=== PATIENT | female | born 1950 | race African-American/Black ===

== ENCOUNTER 2016-08-05 15:35 | Emergency (ER) | payer MEDICARE, OTHER ==
[2016-08-05] MEDS ORDERED: ASPIRIN 81 MG TABLET, CHEWABLE PO ONE (16:04)
--- NOTE | 2016-08-05 16:04 | ER Document Report ---
ED Medical Screen (RME) - General Stated Complaint: CHEST PAIN Time seen by provider: 16:01 Mode of Arrival: Wheelchair Information source: Patient Notes: 66-year-old female presents to ED for for pain in the epigastric area running around to the back on both sides. She had some spaghetti but are not half ago but she says the pain started this morning. She has a history of blood pressure cholesterol and diabetes. She also still has her gallbladder. States she has some dizziness. She states it feels different than her reflux. I have greeted and performed a rapid initial assessment of this patient. A comprehensive ED assessment and evaluation of the patient, analysis of test results and completion of medical decision making process will be conducted by an additional ED providers. TRAVEL OUTSIDE OF THE [place] IN LAST 30 DAYS: No - Related Data Allergies/Adverse Reactions: atorvastatin calcium [From Lipitor] Adverse Reaction (Verified 08/05/16 16:01) Past Medical History - Past Medical History Cardiac Medical History: Reports: Hx Coronary Artery Disease - HIGH CHOLESTEROL , Hx Hypercholesterolemia, Hx Hypertension Denies: Hx Heart Attack Pulmonary Medical History: Reports: Hx Asthma, Hx Pneumonia Denies: Hx Bronchitis, Hx COPD Neurological Medical History: Reports: Hx Cerebrovascular Accident - 1999 LEFT SIDED WEAKNESS. Denies: Hx Seizures Endocrine Medical History: Reports: Hx Diabetes Mellitus Type 2 GI Medical History: Reports: Hx Gastroesophageal Reflux Disease Musculoskeltal Medical History: Reports Hx Arthritis Psychiatric Medical History: Reports: Hx Anxiety, Hx Depression Past Surgical History: Reports: Hx Hysterectomy, Hx Orthopedic Surgery - R wrist. Denies: Hx Pacemaker - Immunizations Hx Diphtheria, Pertussis, Tetanus Vaccination: No Physical Exam - Vital signs Vitals: Temp Pulse Resp BP Pulse Ox 98.3 F 79 24 H 173/60 H 99 08/05/16 15:51 08/05/16 15:51 08/05/16 15:51 08/05/16 15:51 08/05/16 15:51 Course - Vital Signs Vital signs: Temp Pulse Resp BP Pulse Ox 98.3 F 79 24 H 173/60 H 99 08/05/16 15:51 08/05/16 15:51 08/05/16 15:51 08/05/16 15:51 08/05/16 15:51
[2016-08-05] MEDS ORDERED: ONDANSETRON HCL INJ/PF 4 MG/2 ML SDV IV ONE (16:06)
[2016-08-05] MEDS ORDERED: FAMOTIDINE 20 MG TABLET PO ONE (16:06)
[2016-08-05 16:57] LABS: ABSOLUTE BASOPHILS # (AUTO) 0.1 10^3/uL (0.0-0.2); ABSOLUTE EOSINOPHILS # (AUTO) 0.2 10^3/uL (0.0-0.6); ABSOLUTE LYMPHOCYTES (AUTO) 4.9 10^3/uL (0.5-4.7); ABSOLUTE NEUT (AUTO) 5.4 10^3/uL (1.7-8.2); BASOPHILS % (AUTO) 0.4 % (0-2); EOSINOPHILS % (AUTO) 1.8 % (0-6); HEMATOCRIT 42.4 % (36.0-47.0); HEMOGLOBIN 13.5 g/dL (12.0-15.5); HGB HCT DIFFERENCE -1.9; LYMPHOCYTES % (AUTO) 42.5 % (13-45); MEAN CORPUSCULAR HEMOGLOBIN 23.8 pg (27.0-33.4); MEAN CORPUSCULAR HGB CONC 31.8 g/dL (32.0-36.0); MEAN CORPUSCULAR VOLUME 75 fl (80-97); MONOCYTES % (AUTO) 8.3 % (3-13); RED BLOOD COUNT 5.66 10^6/uL (3.72-5.28); RED CELL DISTRIBUTION WIDTH 15.8 % (11.5-14.0); WHITE BLOOD COUNT 11.5 10^3/uL (4.0-10.5)
[2016-08-05 17:17] LABS: ALANINE AMINOTRANSFERASE 34 U/L (9-52); ALBUMIN 4.9 g/dL (3.5-5.0); ALKALINE PHOSPHATASE 100 U/L (38-126); ANION GAP 13 (5-19); ASPARTATE AMINO TRANSFERASE 28 U/L (14-36); BILIRUBIN,TOTAL 0.9 mg/dL (0.2-1.3); BLOOD UREA NITROGEN 12 mg/dL (7-20); CALCIUM 9.9 mg/dL (8.4-10.2); CARBON DIOXIDE 28 mmol/L (22-30); CHLORIDE 104 mmol/L (98-107); CREATINE KINASE 79 U/L (30-135); CREATININE RESULT 0.62 mg/dL (0.52-1.25); GLUCOSE 178 mg/dL (75-110); MAGNESIUM 1.8 mg/dL (1.6-2.3); POTASSIUM 4.1 mmol/L (3.6-5.0); SODIUM 145.2 mmol/L (137-145); TOTAL PROTEIN 8.7 g/dL (6.3-8.2)
[2016-08-05 17:34] LABS: CREATINE KINASE MB 0.72 ng/mL (<4.55)
[2016-08-05 17:35] LABS: TROPONIN I < 0.012 ng/mL
--- NOTE | 2016-08-05 17:42 | EKG REPORT ---
SEVERITY:- ABNORMAL ECG - SINUS RHYTHM PROBABLE LEFT ATRIAL ABNORMALITY PROBABLE LEFT VENTRICULAR HYPERTROPHY : Confirmed by: Vicki Vu MD 05-Aug-2016 17:41:58
--- NOTE | 2016-08-05 18:53 | ER Document Report ---
ED General - General Chief Complaint: Chest Pain > 30 Stated Complaint: CHEST PAIN Mode of Arrival: Wheelchair Information source: Patient Notes: 66-year-old female presents with complaints of intermittent flank pain over the past few months. Patient notes pain has worsened today. Denies any fevers or chills nausea vomiting or diarrhea patient initial concern noted pain under the ribs and was evaluated for chest pain however pain is specific to the flanks TRAVEL OUTSIDE OF THE [place] IN LAST 30 DAYS: No - HPI Onset: Other Onset/Duration: Intermittent Quality of pain: Sharp Severity: Mild Pain Level: 1 Associated symptoms: Other Exacerbated by: Denies Relieved by: Denies Similar symptoms previously: Yes Recently seen / treated by doctor: No - Related Data Allergies/Adverse Reactions: atorvastatin calcium [From Lipitor] Adverse Reaction (Verified 08/05/16 16:01) Past Medical History - General Information source: Patient - Social History Smoking Status: Former Smoker Cigarette use (# per day): No Chew tobacco use (# tins/day): No Smoking Education Provided: No Frequency of alcohol use: None Drug Abuse: None Family History: Reviewed & Not Pertinent Patient has suicidal ideation: No Patient has homicidal ideation: No - Past Medical History Cardiac Medical History: Reports: Hx Coronary Artery Disease - HIGH CHOLESTEROL , Hx Hypercholesterolemia, Hx Hypertension Denies: Hx Heart Attack Pulmonary Medical History: Reports: Hx Asthma, Hx Pneumonia Denies: Hx Bronchitis, Hx COPD Neurological Medical History: Reports: Hx Cerebrovascular Accident - 2000 LEFT SIDED WEAKNESS. Denies: Hx Seizures Endocrine Medical History: Reports: Hx Diabetes Mellitus Type 2 Renal/ Medical History: Denies: Hx Peritoneal Dialysis GI Medical History: Reports: Hx Gastroesophageal Reflux Disease Musculoskeltal Medical History: Reports Hx Arthritis Psychiatric Medical History: Reports: Hx Anxiety, Hx Depression Past Surgical History: Reports: Hx Hysterectomy, Hx Orthopedic Surgery - R wrist. Denies: Hx Pacemaker - Immunizations Hx Diphtheria, Pertussis, Tetanus Vaccination: No Hx Pneumococcal Vaccination: 03/10/10 Review of Systems - Review of Systems Notes: REVIEW OF SYSTEMS: CONSTITUTIONAL : Denies fever, chills, or sweats. Denies recent illness. EENT: Denies eye, ear, throat, or mouth pain or symptoms. Denies nasal or sinus congestion or discharge. Denies throat, tongue, or mouth swelling or difficulty swallowing. CARDIOVASCULAR: Denies chest pain. Denies palpitations or racing or irregular heart beat. Denies ankle edema. RESPIRATORY: Denies cough, cold, or chest congestion. Denies shortness of breath, difficulty breathing, or wheezing. GASTROINTESTINAL: Admits to bilateral flank pain abdominal pain GENITOURINARY: Denies difficulty urinating, painful urination, burning, frequency, blood in urine, or discharge. FEMALE GENITOURINARY: Denies vaginal bleeding, heavy or abnormal periods, irregular periods. Denies vaginal discharge or odor. MUSCULOSKELETAL: Denies back or neck pain or stiffness. Denies joint pain or swelling. SKIN: Denies rash, lesions or sores. HEMATOLOGIC : Denies easy bruising or bleeding. LYMPHATIC: Denies swollen, enlarged glands. NEUROLOGICAL: Denies confusion or altered mental status. Denies passing out or loss of consciousness. Denies dizziness or lightheadedness. Denies headache. Denies weakness or paralysis or loss of use of either side. Denies problems with gait or speech. Denies sensory loss, numbness, or tingling. Denies seizures. PSYCHIATRIC: Denies anxiety or stress. Denies depression, suicidal ideation, or homicidal ideation. ALL OTHER SYSTEMS REVIEWED AND NEGATIVE. Dictation was performed using [employer] voice recognition software PHYSICAL EXAMINATION: GENERAL: Well-appearing, well-nourished and in no acute distress. HEAD: Atraumatic, normocephalic. EYES: Pupils equal round and reactive to light, extraocular movements intact, conjunctiva are normal. ENT: Nares patent, oropharynx clear without exudates. Moist mucous membranes. NECK: Normal range of motion, supple without lymphadenopathy LUNGS: Breath sounds clear to auscultation bilaterally and equal. No wheezes rales or rhonchi. HEART: Regular rate and rhythm without murmurs ABDOMEN: Soft, nontender, nondistended abdomen. No guarding, no rebound. No masses appreciated. Bilateral CVA tenderness Female : deferred Musculoskeletal: Normal range of motion, no pitting or edema. No cyanosis. NEUROLOGICAL: Cranial nerves grossly intact. Normal speech, normal gait. Normal sensory, motor exams PSYCH: Normal mood, normal affect. SKIN: Warm, Dry, normal turgor, no rashes or lesions noted. Physical Exam - Vital signs Vitals: Temp Pulse Resp BP Pulse Ox 98.3 F 79 24 H 173/60 H 99 08/05/16 15:51 08/05/16 15:51 08/05/16 15:51 08/05/16 15:51 08/05/16 15:51 Course - Re-evaluation Re-evalutation: 08/05/16 18:38 Physical examination lab work note no obvious abnormalities. CT does note nonobstructing stone which I believe is the patient's intermittent concern when she goes past the stones. She is otherwise stable for discharge and has no cardiac concerns After performing a Medical Screening Examination, I estimate there is LOW risk for ACUTE APPENDICITIS, BOWEL OBSTRUCTION, ACUTE CHOLECYSTITIS, PERFORATED DIVERTICULITIS, INCARCERATED HERNIA, PANCREATITIS, PELVIC INFLAMMATORY DISEASE, PERFORATED ULCER, ECTOPIC , or TUBO-OVARIAN ABSCESS, thus I consider the discharge disposition reasonable. Also, there is no evidence or peritonitis , sepsis, or toxicity. The patient and I have discussed the diagnosis and risks , and we agree with discharging home with close follow-up with the understanding that symptoms and presentations can change. We also discussed returning to the Emergency Department immediately if new or worsening symptoms occur. We have discussed the symptoms which are most concerning (e.g., bloody stool, fever, changing or worsening pain, vomiting) that necessitate immediate return. 08/05/16 18:55 - Vital Signs Vital signs: Temp Pulse Resp BP Pulse Ox 98.3 F 79 19 177/70 H 99 08/05/16 15:51 08/05/16 15:51 08/05/16 17:01 08/05/16 17:00 08/05/16 17:19 - Laboratory Result Diagrams: 08/05/16 16:30 08/05/16 16:30 Laboratory results interpreted by me: 08/05/16 08/05/16 16:30 16:30 WBC 11.5 H RBC 5.66 H MCV 75 L MCH 23.8 L MCHC 31.8 L RDW 15.8 H Absolute Lymphocytes 4.9 H Sodium 145.2 H Glucose 178 H Total Protein 8.7 H - Diagnostic Test Radiology reviewed: Image reviewed, Reports reviewed Discharge - Discharge Clinical Impression: nonobstructing kidney stone Abdominal pain Qualifiers: Abdominal location: unspecified location Qualified Code(s): R10.9 - Unspecified abdominal pain Condition: Stable Disposition: HOME, SELF-CARE Instructions: Abdominal Pain ([facility]) Additional Instructions: Follow up with your physician tomorrow for further care or return to the ED IMMEDIATELY if symptoms worsen or new concerns occur Prescriptions: Hydrocodone/Acetaminophen [[place] 5-325 mg Tablet] 1 tab PO Q6 #14 tablet Tamsulosin HCl [Flomax 0.4 mg Cap.sr] 0.4 mg PO DAILY #7 cap.sr.24h
[2016-08-05] MEDS ORDERED: HYDROCODONE/ACETAMINOPHEN 5-325 MG 6 TAB/DSPK PO PRN (19:01)
[2016-08-05 19:15] VITALS: BP 160/70
== END 2016-08-05 19:13 | disposition home or self-care (01) ==
LOC: ER 15:35
DX: N20.0 Calculus of kidney (principal); R10.9 Unspecified abdominal pain; R07.9 Chest pain, unspecified; E78.00 Pure hypercholesterolemia, unspecified; I10 Essential (primary) hypertension; J45.909 Unspecified asthma, uncomplicated; I69.954 Hemiplegia and hemiparesis following unspecified cerebrovascular disease affecting left non-dominant side; Z90.710 Acquired absence of both cervix and uterus
CPT/HCPCS: 93005; 99285; 96374; 36415; 82553; 82550; 83735; 85025; 80053; 84484; 71020; 74177; 93010; A9270 ×3; J2405

== ENCOUNTER → 2016-08-28 | Outpatient (CLI) | payer MEDICARE, OTHER | LOC: WI 08:09 | PROVIDERS: ATTEND Internal Medicine | DX: Z12.31 Encounter for screening mammogram for malignant neoplasm of breast (principal) | CPT/HCPCS: 77067; G0202 ==

== ENCOUNTER → 2016-12-28 | Outpatient (CLI) | payer MEDICARE, OTHER ==
--- NOTE | 2016-12-28 10:46 | RADIOLOGY REPORT (SQ) ---
EXAM DESCRIPTION: L SPINE WHOLE COMPLETED DATE/TIME: 12/28/2016 9:58 am REASON FOR STUDY: LOW BACK PAIN (M54.5) M54.5 LOW BACK PAIN COMPARISON: None. NUMBER OF VIEWS: Five views including obliques. TECHNIQUE: AP, lateral, oblique, and sacral radiographic images acquired of the lumbar spine. LIMITATIONS: None. FINDINGS: MINERALIZATION: Normal. SEGMENTATION: Normal. No transitional anatomy. ALIGNMENT: Normal. VERTEBRAE: Maintained height. No fracture or worrisome bone lesion. DISCS: Preserved height. Minimal anterior osteophytic lipping is identified. POSTERIOR ELEMENTS: Pedicles and facets are intact. No pars defect or posterior arch defects. Degen erative changes are identified in the facet articulations at the L4 and L5 levels. HARDWARE: None in the spine. PARASPINAL SOFT TISSUES: Normal. PELVIS: Intact as visualized. No fractures or worrisome bone lesions. There is some mild bony sclero sis adjacent to the SI joints. OTHER: No other significant finding. IMPRESSION: Degenerative changes as noted above TECHNICAL DOCUMENTATION: JOB ID: [id number] [employer]- All Rights Reserved
== END ==
LOC: RAD 09:24
PROVIDERS: ATTEND Obstetrics & Gynecology
DX: M54.5 Low back pain (principal)
CPT/HCPCS: 72110

== ENCOUNTER 2017-09-03 08:36 | Day surgery (SDC) | payer MEDICARE, OTHER ==
[~2017-09-03 08:36] MED LIST: BUPIVACAINE HCL 0.75% INJ/PF (7.5 MG/1 ML) 10 ML SDV OD PRN; KETOROLAC TROMETHAMINE 0.45% 4 DROP/0.4 ML DROPERETTE OD PRN; LIDOCAINE 4% INJ/PF (40 MG/ML) 5 ML AMPUL OD PRN; MIDAZOLAM 2 MG/2 ML INJ ONE
[2017-09-03] MEDS ORDERED: CHONDR SU A NA/HYALUR INTRAOC KIT (SURGICARE) ONE (08:40)
[2017-09-03] MEDS ORDERED: EPINEPHRINE INJ/PF 1 MG/1 ML AMPULE ONE (08:40)
[2017-09-03] MEDS ORDERED: LIDOCAINE 1% INJ-PF (10 MG/ML) 30 ML SDV ONE (08:41)
[2017-09-03] MEDS: TROPICAMIDE 1% OPH SOLN 3 ML OD PRN ×3 (09:05→09:32)
[2017-09-03] MEDS: CYCLOPENTOLATE 0.2%/PHENYLEPHRINE 1% OPH SOLN 2 ML OD PRN ×3 (09:05→09:32)
[2017-09-03] MEDS: BESIFLOXACIN HCL 0.6% OPH SUSP 5 ML BOTTLE OD PRN ×4 (09:06→10:17)
[2017-09-03] MEDS: TETRACAINE HCL 0.5% OPH SOLN 0.6 ML DROPERETTE OD PRN ×2 (09:07→09:33)
[2017-09-03] MEDS ORDERED: MIDAZOLAM 2 MG/2 ML INJ ONE (10:23)
--- NOTE | 2017-09-03 10:34 | [facility] DISCHARGE SUMMARY E ---
[facility] Discharge Summary NAME: GAB APARICIO AGE: 67Y ADMITTED: 09/03/2017 DISCHARGED: 09/03/2017 PREOPERATIVE DIAGNOSIS: Cataract, right eye. POSTOPERATIVE DIAGNOSIS: Cataract, right eye. HOSPITAL COURSE: The patient is a 67-year-old lady who underwent uneventful cataract extraction with intraocular lens implant, right eye, on 09/03/2017. She will be discharged to home. She was instructed to resume preoperative medications, take Tylenol as needed for discomfort, to keep her eye shielded, to use Besivance, Durezol, and Ilevro at 3 p.m. and 8 p.m., and to followup in my office in 1 day. DICTATING PHYSICIAN: NUSRAT WOLFE M.D. [id number] PHY#: [id number] ID: [id number] JOB#: [id number] ACCT: [id number] cc:NUSRAT WOLFE M.D. >
--- NOTE | 2017-09-03 10:34 | [facility] OPERATIVE REPORT E ---
[facility] Operative Report NAME: GAB APARICIO AGE: 67Y DATE OF SURGERY: 09/03/2017 ROOM: PREOPERATIVE DIAGNOSIS: Cataract, right eye. POSTOPERATIVE DIAGNOSIS: Cataract, right eye. PROCEDURE PERFORMED: Phacoemulsification with posterior chamber intraocular lens, right eye. SURGEON: Juliann Wolfe MD ANESTHESIA: Topical with MAC. INDICATIONS FOR SURGERY: Difficulty driving at night due to glare. Best corrected visual acuity 20/40. PROCEDURE: The patient was brought to the operating room and placed on the operative table. Following tetracaine drops, topical anesthesia was administered. This consisted of instrument wipe pledgets soaked in a solution of 4% Xylocaine mixed with 0.75% Marcaine in a 1:2 ratio. A 2 x 1 cm pledget was placed in the superior fornix. A 1 x 1 cm pledget was placed in the inferior fornix. The eye was patched shut for 5 minutes. The patch was removed. The eye was sterilely prepped and draped in the usual manner. Lid speculum was placed in the eye. The pledgets were removed. 4-0 black silk sutures were placed around the superior and the inferior rectus muscles to be used as traction. A conjunctival peritomy was made at the 10 o'clock position. Hemostasis was obtained with bipolar cautery. A posterior limbal groove was created using a crescent knife and dissected anteriorly towards the cornea. A sharp point blade was used to create a paracentesis site at the 2 o'clock position. A 2.4 mm keratome was used to enter the anterior chamber through the groove. Viscoelastic was injected into the anterior chamber. An anterior capsulotomy was performed using Utrata forceps in a capsulorrhexis fashion. Hydrodissection and hydrodelineation were performed. Phacoemulsification was performed in adzjsv-xej-xqekdmp technique. A total of 44 seconds phaco time was used. Following this, the I/A unit was used to remove residual cortex. Viscoelastic was injected into the capsular bag. Intraocular lens model SN60WF, 20.0 diopters, serial number [id number] was placed in the capsular bag. The I/A unit was used to remove residual viscoelastic. The wound was seen to be watertight under high and low pressure, and no sutures were placed. The intraocular lens was well centered. The pressure was adjusted in the eye to normal pressure. The 4-0 black silk sutures and lid speculum were removed. The eye was shielded after Besivance drops were placed. The patient tolerated the procedure well and was sent to the recovery room in good condition. DICTATING PHYSICIAN: JULIANN WOFLE M.D. [id number] PHY#: [id number] ID: [id number] JOB#: [id number] ACCT: [id number] cc:JULIANN WOLFE M.D. >
== END 2017-09-03 11:00 | disposition home or self-care (01) ==
LOC: SC 08:36
PROVIDERS: ATTEND Ophthalmology
DX: H25.811 Combined forms of age-related cataract, right eye (principal); H16.223 Keratoconjunctivitis sicca, not specified as Sjogren's, bilateral; H25.813 Combined forms of age-related cataract, bilateral; I10 Essential (primary) hypertension; E78.00 Pure hypercholesterolemia, unspecified; M19.90 Unspecified osteoarthritis, unspecified site; J45.909 Unspecified asthma, uncomplicated; Z86.73 Personal history of transient ischemic attack (TIA), and cerebral infarction without residual deficits; E11.9 Type 2 diabetes mellitus without complications; Z79.1 Long term (current) use of non-steroidal anti-inflammatories (NSAID); Z79.899 Other long term (current) drug therapy; Z79.84 Long term (current) use of oral hypoglycemic drugs; Z79.51 Long term (current) use of inhaled steroids; Z79.4 Long term (current) use of insulin
CPT/HCPCS: 82962; 66984; V2632; J2250; J3490 ×4; A9270; J0171; 142

== ENCOUNTER 2017-09-24 08:41 | Day surgery (SDC) | payer MEDICARE, OTHER ==
[~2017-09-24 08:41] MED LIST changes: -BUPIVACAINE HCL 0.75% INJ/PF (7.5 MG/1 ML) 10 ML SDV OD PRN; +CHONDR SU A NA/HYALUR INTRAOC KIT (SURGICARE) ONE; +EPINEPHRINE INJ/PF 1 MG/1 ML AMPULE ONE; -KETOROLAC TROMETHAMINE 0.45% 4 DROP/0.4 ML DROPERETTE OD PRN; +KETOROLAC TROMETHAMINE 0.45% 4 DROP/0.4 ML DROPERETTE OS PRN; +LIDOCAINE 1% INJ-PF (10 MG/ML) 30 ML SDV ONE; -LIDOCAINE 4% INJ/PF (40 MG/ML) 5 ML AMPUL OD PRN; +LIDOCAINE 4% INJ/PF (40 MG/ML) 5 ML AMPUL OS PRN; -MIDAZOLAM 2 MG/2 ML INJ ONE
[2017-09-24] MEDS: TETRACAINE HCL 0.5% OPH SOLN 0.6 ML DROPERETTE OS PRN ×2 (09:04→09:34)
[2017-09-24] MEDS: CYCLOPENTOLATE 0.2%/PHENYLEPHRINE 1% OPH SOLN 2 ML OS PRN ×3 (09:05→09:32)
[2017-09-24] MEDS: BESIFLOXACIN HCL 0.6% OPH SUSP 5 ML BOTTLE OS PRN ×4 (09:05→10:06)
[2017-09-24] MEDS: TROPICAMIDE 1% OPH SOLN 3 ML OS PRN ×3 (09:05→09:32)
[2017-09-24] MEDS ORDERED: ONDANSETRON HCL INJ/PF 4 MG/2 ML SDV ONE (09:23)
[2017-09-24] MEDS ORDERED: FENTANYL CITRATE INJ/PF 100 MCG/2 ML AMPUL ONE (09:23)
[2017-09-24] MEDS ORDERED: MIDAZOLAM 2 MG/2 ML INJ ONE (09:23)
[2017-09-24] MEDS: BUPIVACAINE HCL 0.75% INJ/PF (7.5 MG/1 ML) 10 ML SDV OS PRN ×2 (09:42→09:59)
--- NOTE | 2017-09-24 10:25 | [facility] DISCHARGE SUMMARY E ---
[facility] Discharge Summary NAME: GAB APARICIO AGE: 67Y ADMITTED: 09/24/2017 DISCHARGED: 09/24/2017 PREOPERATIVE DIAGNOSIS: CATARACT, LEFT EYE. POSTOPERATIVE DIAGNOSIS: CATARACT, LEFT EYE. HOSPITAL COURSE: Patient is a 67-year-old lady who underwent uneventful cataract extraction with intraocular lens implant, left eye, on 09/24/2017. DISPOSITION: She will be discharged to home. She was instructed to resume preoperative medications; take Tylenol as needed for discomfort; to keep her eye shielded; to use Besivance, Durezol, and Ilevro at 3:00 p.m. and 8:00 p.m.; and to follow up in my office in 1 day. DICTATING PHYSICIAN: NUSRAT WOLFE M.D. [id number] PHY#: [id number] ID: [id number] JOB#: [id number] ACCT: [id number] cc:NUSRAT WOLFE M.D. >
--- NOTE | 2017-09-24 10:25 | [facility] OPERATIVE REPORT E ---
[facility] Operative Report NAME: GAB APARICIO AGE: 67Y DATE OF SURGERY: 09/24/2017 ROOM: PREOPERATIVE DIAGNOSIS: CATARACT, LEFT EYE. POSTOPERATIVE DIAGNOSIS: CATARACT, LEFT EYE. OPERATION: Phacoemulsification with posterior chamber intraocular lens, left eye. SURGEON: NUSRAT WOLFE M.D. ANESTHESIA: Topical with MAC. INDICATIONS FOR SURGERY: Difficulty reading road signs. Best corrected visual acuity 20/25. DESCRIPTION OF PROCEDURE: The patient was brought to the operating room and placed on the operative table. Following tetracaine drops, topical anesthesia was administered. This consisted of instrument wipe pledgets soaked in a solution of 4% Xylocaine mixed with 0.75% Marcaine in a 1:2 ratio. A 2 x 1 cm pledget was placed in the superior fornix. A 1 x 1 cm pledget was placed in the inferior fornix. The eye was patched shut for 5 minutes. The patch was removed. The eye was sterilely prepped and draped in the usual manner. Lid speculum was placed in the eye. The pledgets were removed, 4-0 black silk sutures were placed around the superior and the inferior rectus muscles to be used as traction. A conjunctival peritomy was made at the 10 o'clock position. Hemostasis was obtained with bipolar cautery. A posterior limbal groove was created using a crescent knife and dissected anteriorly towards the cornea. A sharp point blade was used to create a paracentesis site at the 2 o'clock position. A 2.4 mm keratome was used to enter the anterior chamber through the groove. Viscoelastic was injected into the anterior chamber. An anterior capsulotomy was performed using Utrata forceps in a capsulorrhexis fashion. Hydrodissection and hydrodelineation were performed. Phacoemulsification was performed in zvodjz-rzt-yxmldmx technique. A total of 5.60 CDE phaco time was used. Following this, the I/A unit was used to remove residual cortex. Viscoelastic was injected into the capsular bag. Intraocular lens Model SN60WF, 20.5 diopter, serial number [id number] was placed in the capsular bag. The I/A unit was used to removed residual viscoelastic. The wound was seen to be watertight under high and low pressure, and no sutures were placed. The intraocular lens was well centered. The pressure was adjusted in the eye to normal pressure. The 4-0 black silk sutures and lid speculum were removed. The eye was shielded after Besivance drops were placed. The patient tolerated the procedure well and was sent to the recovery room in good condition. DICTATING PHYSICIAN: NUSRAT WOLFE M.D. [id number] PHY#: [id number] ID: [id number] JOB#: [id number] ACCT: [id number] cc:NUSRAT WOLFE M.D. >
== END 2017-09-24 11:22 | disposition home or self-care (01) ==
LOC: SC 08:41
PROVIDERS: ATTEND Ophthalmology
PROC: 08RK3JZ Replacement of Left Lens with Synthetic Substitute, Percutaneous Approach (ICD-10-PCS; principal; 2017-09-24 10:00)
DX: H25.812 Combined forms of age-related cataract, left eye (principal); Z96.1 Presence of intraocular lens; J45.909 Unspecified asthma, uncomplicated; I10 Essential (primary) hypertension; M19.90 Unspecified osteoarthritis, unspecified site; E11.9 Type 2 diabetes mellitus without complications; G47.33 Obstructive sleep apnea (adult) (pediatric); R01.1 Cardiac murmur, unspecified; I69.854 Hemiplegia and hemiparesis following other cerebrovascular disease affecting left non-dominant side; E66.9 Obesity, unspecified; Z79.51 Long term (current) use of inhaled steroids; Z79.899 Other long term (current) drug therapy; Z79.84 Long term (current) use of oral hypoglycemic drugs; Z88.8 Allergy status to other drugs, medicaments and biological substances; Z79.4 Long term (current) use of insulin; Z68.41 Body mass index [BMI] 40.0-44.9, adult
CPT/HCPCS: 66984; 82962; V2632; J2250; J3490 ×4; A9270; J0171; J3010; J2405; 142

== ENCOUNTER → 2018-03-17 | Outpatient (CLI) | payer MEDICARE, OTHER ==
--- NOTE | 2018-03-17 15:17 | RADIOLOGY REPORT (SQ) ---
EXAM DESCRIPTION: CTA CHEST COMPLETED DATE/TIME: 03/17/2018 2:50 pm REASON FOR STUDY: SHORTNESS OF BREATH R06.02 SHORTNESS OF BREATH COMPARISON: 04/25/2011 TECHNIQUE: CT scan of the chest performed using helical scanning technique with dynamic intravenous contrast injection. Images reviewed with lung, soft tissue and bone windows. Reconstructed coronal and sagittal MPR images reviewed. Additional 3 dimensional post-processing performed to develop Maximal Intensity Projection images (HI P). All images stored on PACS. All CT scanners at this facility use dose modulation, iterative reconstruction, and/or weight based d osing when appropriate to reduce radiation dose to as low as reasonably achievable (ALARA). [facility]: Dose Right [facility]: CareDose [facility]: Dose Right [facility]: Teradose 4D [facility]: ClairMail CONTRAST TYPE AND DOSE: contrast/concentration: Isovue 350.00 mg/ml; Total Contrast Delivered: 73.0 ml; Total Saline Delivered: 110.0 ml Contrast bolus optimized for the pulmonary arteries. Not diagnostic for the aorta. RENAL FUNCTION: Creatinine 0.5 RADIATION DOSE: CT Rad equipment meets quality standard of care and radiation dose reduction techniq ues were employed. CTDIvol: 14.1 - 15.5 mGy. DLP: 553 mGy-cm. . LIMITATIONS: None. FINDINGS: LUNGS AND PLEURA: Mild centrilobular emphysematous changes in the apices. No infiltrate o r effusion or mass. AORTA AND GREAT VESSELS: No aneurysm. Contrast bolus not optimized for the aorta. HEART: No pericardial effusion. No significant coronary artery calcifications. PULMONARY ARTERIES: No emboli visualized in the main pulmonary arteries or the segmental branches. HILAR AND MEDIASTINAL STRUCTURES: No identified masses or abnormal nodes. HARDWARE: None in the chest. UPPER ABDOMEN: No significant findings. Limited exam. THYROID AND OTHER SOFT TISSUES: No masses. No adenopathy. BONES: No acute or significant finding. 3D MIPS: Confirm above findings. OTHER: No other significant finding. IMPRESSION: 1. There is no evidence of pulmonary emboli. 2. Mild emphysematous changes in the upper lobes. COMMENT: Quality ID # [id number]: Final reports with documentation of one or more dose reduction techniques (e.g., Automated exposure control, adjustment of the mA and/or kV according to patient size, use of iterative reconstruction technique) TECHNICAL DOCUMENTATION: JOB ID: [id number]- All Rights Reserved Reading location - IP/workstation name: [email or web address]
== END ==
LOC: RAD 14:13
PROVIDERS: ATTEND Internal Medicine
DX: R06.02 Shortness of breath (principal)
CPT/HCPCS: 71275; 82565

== ENCOUNTER 2019-02-03 06:31 | Day surgery (SDC) | payer MEDICARE, OTHER ==
--- NOTE | 2019-01-27 09:35 | RADIOLOGY REPORT (SQ) ---
EXAM DESCRIPTION: CHEST PA/LATERAL COMPLETED DATE/TIME: 01/27/2019 9:26 am REASON FOR STUDY: PRE-OP COMPARISON: 08/05/2016 EXAM PARAMETERS: NUMBER OF VIEWS: two views TECHNIQUE: Digital Frontal and Lateral radiographic views of the chest acquired. RADIATION DOSE: NA LIMITATIONS: none FINDINGS: LUNGS AND PLEURA: No opacities, masses or pneumothorax. No pleural effusion. MEDIASTINUM AND HILAR STRUCTURES: No masses or contour abnormalities. HEART AND VASCULAR STRUCTURES: Heart normal size. No evidence for failure. BONES: No acute findings. HARDWARE: None in the chest. OTHER: No other significant finding. IMPRESSION: NO SIGNIFICANT RADIOGRAPHIC FINDING IN THE CHEST. TECHNICAL DOCUMENTATION: JOB ID: [id number] [employer]- All Rights Reserved Reading location - IP/workstation name: [email or web address]
--- NOTE | 2019-01-27 10:13 | EKG REPORT ---
SEVERITY:- ABNORMAL ECG - SINUS RHYTHM LEFT VENTRICULAR HYPERTROPHY BORDERLINE T ABNORMALITIES, INFERIOR LEADS : Confirmed by: Vicki Vu MD 27-Jan-2019 10:12:50
[2019-01-27 10:17] LABS: ABSOLUTE EOSINOPHILS # (AUTO) 0.2 10^3/uL (0.0-0.6); ABSOLUTE LYMPHOCYTES (AUTO) 3.5 10^3/uL (0.5-4.7); ABSOLUTE MONOCYTES (AUTO) 0.9 10^3/uL (0.1-1.4); BASOPHILS % (AUTO) 0.4 % (0-2); EOSINOPHILS % (AUTO) 2.6 % (0-6); HEMATOCRIT 40.1 % (36.0-47.0); HEMOGLOBIN 13.1 g/dL (12.0-15.5); LYMPHOCYTES % (AUTO) 40.6 % (13-45); MEAN CORPUSCULAR HEMOGLOBIN 24.7 pg (27.0-33.4); MEAN CORPUSCULAR HGB CONC 32.7 g/dL (32.0-36.0); MEAN CORPUSCULAR VOLUME 76 fl (80-97); MONOCYTES % (AUTO) 10.4 % (3-13); PLATELET COUNT 235 10^3/uL (150-450); RED CELL DISTRIBUTION WIDTH 15.2 % (11.5-14.0); TOTAL CELLS COUNTED % (AUTO) 100 %; WHITE BLOOD COUNT 8.6 10^3/uL (4.0-10.5)
[2019-01-27 10:37] LABS: ANION GAP 10 (5-19); BLOOD UREA NITROGEN 12 mg/dL (7-20); CALCIUM 9.5 mg/dL (8.4-10.2); CARBON DIOXIDE 28 mmol/L (22-30); CHLORIDE 103 mmol/L (98-107); GLUCOSE 175 mg/dL (75-110); POTASSIUM 4.5 mmol/L (3.6-5.0)
[~2019-02-03 06:31] MED LIST changes: -CHONDR SU A NA/HYALUR INTRAOC KIT (SURGICARE) ONE; +DEXAMETHASONE SOD PHOSPHATE INJ 4 MG/1 ML VIAL ONE; +EPHEDRINE SULFATE INJ 50 MG/1 ML AMPULE ONE; -EPINEPHRINE INJ/PF 1 MG/1 ML AMPULE ONE; +FENTANYL CITRATE INJ/PF 100 MCG/2 ML AMPUL ONE; +FENTANYL CITRATE INJ/PF 250 MCG/5 ML AMPULE ONE; -KETOROLAC TROMETHAMINE 0.45% 4 DROP/0.4 ML DROPERETTE OS PRN; +LIDOCAINE 0.5% INJ-PF (5 MG/ML) 50 ML SDV ONE; -LIDOCAINE 1% INJ-PF (10 MG/ML) 30 ML SDV ONE; -LIDOCAINE 4% INJ/PF (40 MG/ML) 5 ML AMPUL OS PRN; +MIDAZOLAM 2 MG/2 ML INJ ONE; +ONDANSETRON HCL INJ/PF 4 MG/2 ML SDV ONE; +PROPOFOL INJ 200 MG/20 ML VIAL IV ONE
[2019-02-03] MEDS ORDERED: CEFAZOLIN SODIUM 2 GM in DEXTROSE 5%-WATER 100 ML IV PRN (07:07)
[2019-02-03] MEDS ORDERED: ALBUTEROL SULFATE 0.083% NEB 2.5 MG/3 ML AMPUL NEB ONE (07:27)
[2019-02-03] MEDS ORDERED: MIDAZOLAM 2 MG/2 ML INJ ONE (07:27)
[2019-02-03] MEDS ORDERED: INSULIN LISPRO 100 UNIT/ML 3 ML VIAL ONE (07:35)
[2019-02-03] MEDS ORDERED: RINGERS SOLUTION,LACTATED 1,000 ML IV ONE (07:45)
[2019-02-03] MEDS ORDERED: INSULIN LISPRO 100 UNIT/ML 3 ML VIAL SUBCUT ONE (07:45)
[2019-02-03] MEDS ORDERED: LIDOCAINE 1% INJ-PF (10 MG/ML) 30 ML SDV ONE (08:10)
[2019-02-03] MEDS ORDERED: EPINEPHRINE INJ/PF 1 MG/1 ML AMPULE ONE (08:10)
[2019-02-03] MEDS ORDERED: BUPIVACAINE HCL 0.5 % INJ/PF 30 ML SDV ONE (08:10)
[2019-02-03] MEDS ORDERED: BETAMET ACET/BETAMET NA INJ 6 MG/1 ML IM PRN (08:27)
--- NOTE | 2019-02-03 09:05 | Discharge Summary ---
Discharge Summary (SDC) - Discharge Final Diagnosis: Right shoulder rotator cuff tear Date of Surgery: 02/03/19 Discharge Date: 02/03/19 Condition: Good Treatment or Instructions: Schedule Follow Up w/ Dr. Herbert Woodruff @ [facility] to be seen in 10-14 days or as scheduled [place]: [place]: [place]: May remove dressing on postop day #3, keep incision covered and dry. Cryocuff to shoulder May begin pendulum exercises along w/ hand, wrist and elbow range of motion 4x per day or as tolerated. May remove sling for hygiene purposes otherwise continue it at all times. Stool softener of choice when on pain medication. USE OF [id number]-SMB-CTCWPSR IBUPROFEN: Ibuprofen (Advil, Nuprin, Medipren, Motrin IB) is a medication for fever and pain control. In addition, it has anti- inflammatory effects which may be beneficial, especially in the treatment of injuries. It's best to take ibuprofen with food. Persons with ulcer disease or allergy to aspirin should notify their physician of this before taking ibuprofen. Ibuprofen can be given every four to six hours, for a total of four doses daily. Age Pain or fever dose Antiinflammatory dose 6-8 yr 200 mg (1 tab) 200 mg (1 tab) 9-11 yr 200 mg (1 tab) 200-400 mg (1-2 tab) 11-14 yr 200-400 mg (1-2 tab) 400 mg (2 tab) 15-adult 400 mg (2 tab) 600 mg (3 tab) ORAL NARCOTIC MEDICATION: You have been given a prescription for pain control. This medication is a narcotic. It's best taken with food, as nausea can result if taken on an empty stomach. Don't operate machinery or drive within six hours of taking this medic ation. Do not combine this medicine with alcohol, or with any medication which can cause sedation (such as cold tablets or sleeping pills) unless you get permission from the physician. Narcotics tend to cause constipation. If possible, drink plenty of fluids and eat a diet high in fiber and fruits. Please be aware that prescription narcotics also have the potential for abuse. People become addicted to these medications because of the general sense of wellbeing that they induce. This feeling along with a significant reduction in tension, anxiety, and aggression provides a stimulating seductive quality to these drugs. Once your pain is under control, we encourage you to discard your unused narcotics. Referrals: ADDIS ACUNA MD [Primary Care Provider] - Respiratory Treatments at Home: Deep Breathing/Coughing Report the Following to Your Physician Immediately: Fever over 101 Degrees, Unusual Bleeding, Redness, Swelling, Warmth, Increased Soreness
--- NOTE | 2019-02-03 09:06 | Operative Report ---
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 Left shoulder bursitis POSTOPERATIVE DIAGNOSIS: Same OPERATION: Left shoulder subacromial injection SURGEON: ELIJAH ANGEL ANESTHESIA: Moderate Sedation COMPLICATIONS: None ESTIMATED BLOOD LOSS: None PROCEDURE: Indication for above procedure: 69-year-old female who has long-standing history of right shoulder discomfort. Patient attempted to conservative measures including therapy, injections and anti-inflammatories. Patient MRI demonstrating rotator cuff tear at that point decision was made to proceed with operative intervention. Risks and benefits were explained to the patient who verbalized understanding and consented for surgical procedure. Procedure In Detail: Patient was seen and evaluated in the preoperative holding area. The RIGHT upper extremity was initialized and marked. Patient received 2g of Ancef IV for bacterial prophylaxis. Patient was taken back to the operative room where transferred to the operative table and placed under general anesthesia. Once they anesthetized patient's blood pressure significantly increased and began having EKG changes thus decision was made to cancel surgical procedure for further work-up. In the PACU the left shoulder: Mixture of 1 cc of Celestone and 1 cc of lidocaine was injected into the subacromial space.
[2019-02-03 09:56] VITALS: BP 150/67
== END 2019-02-03 09:45 | disposition home or self-care (01) ==
LOC: OROUT 06:31
PROVIDERS: ATTEND Orthopaedic Surgery
DX: M25.511 Pain in right shoulder (principal); M75.121 Complete rotator cuff tear or rupture of right shoulder, not specified as traumatic; Z79.01 Long term (current) use of anticoagulants; Z79.899 Other long term (current) drug therapy; Z79.84 Long term (current) use of oral hypoglycemic drugs; E11.9 Type 2 diabetes mellitus without complications; I10 Essential (primary) hypertension; Z87.891 Personal history of nicotine dependence; K21.9 Gastro-esophageal reflux disease without esophagitis; M75.102 Unspecified rotator cuff tear or rupture of left shoulder, not specified as traumatic; M75.41 Impingement syndrome of right shoulder
CPT/HCPCS: 93005; 36415; 82962; 85025; 80048; 71046; 93010; 20610; J2250; J0690; J0171; J3010; A9270 ×2; J3490 ×2; J0702; J7060; J1100; J1815; J2405; J2704

== ENCOUNTER → 2019-02-06 | Outpatient (CLI) | payer MEDICARE, OTHER ==
[2019-02-11 12:43] LABS: RENIN ACTIVITY <0.167 ng/mL/hr (0.167-5.38)
== END ==
LOC: OD 12:33
PROVIDERS: ATTEND Internal Medicine
DX: I10 Essential (primary) hypertension (principal)
CPT/HCPCS: 36415; 82088; 84244

== ENCOUNTER 2019-02-26 14:56 | Observation (INO) | payer MEDICARE, OTHER ==
[2019-02-26 16:59] LABS: ABSOLUTE BASOPHILS # (AUTO) 0.1 10^3/uL (0.0-0.2); ABSOLUTE EOSINOPHILS # (AUTO) 0.2 10^3/uL (0.0-0.6); ABSOLUTE LYMPHOCYTES (AUTO) 4.2 10^3/uL (0.5-4.7); ABSOLUTE MONOCYTES (AUTO) 1.1 10^3/uL (0.1-1.4); ABSOLUTE NEUT (AUTO) 5.1 10^3/uL (1.7-8.2); BASOPHILS % (AUTO) 1.1 % (0-2); EOSINOPHILS % (AUTO) 1.4 % (0-6); HEMOGLOBIN 13.8 g/dL (12.0-15.5); LYMPHOCYTES % (AUTO) 39.2 % (13-45); MEAN CORPUSCULAR HEMOGLOBIN 24.9 pg (27.0-33.4); MEAN CORPUSCULAR VOLUME 76 fl (80-97); MONOCYTES % (AUTO) 10.7 % (3-13); PLATELET COUNT 277 10^3/uL (150-450); RED BLOOD COUNT 5.55 10^6/uL (3.72-5.28); RED CELL DISTRIBUTION WIDTH 15.7 % (11.5-14.0); SEGMENTED NEUTROPHILS % (AUTO) 47.6 % (42-78); TOTAL CELLS COUNTED % (AUTO) 100 %; WHITE BLOOD COUNT 10.7 10^3/uL (4.0-10.5)
[2019-02-26 17:23] LABS: ALBUMIN 4.4 g/dL (3.5-5.0); ALKALINE PHOSPHATASE 100 U/L (38-126); ANION GAP 12 (5-19); ASPARTATE AMINO TRANSFERASE 28 U/L (14-36); BILIRUBIN,DIRECT 0.2 mg/dL (0.0-0.4); BILIRUBIN,TOTAL 0.9 mg/dL (0.2-1.3); BLOOD UREA NITROGEN 13 mg/dL (7-20); CALCIUM 10.2 mg/dL (8.4-10.2); CARBON DIOXIDE 28 mmol/L (22-30); CHLORIDE 101 mmol/L (98-107); CREATINE KINASE 34 U/L (30-135); GLUCOSE 85 mg/dL (75-110); POTASSIUM 3.6 mmol/L (3.6-5.0)
[2019-02-26 17:35] LABS: CREATINE KINASE MB 0.38 ng/mL (<4.55); TROPONIN I 0.012 ng/mL
[2019-02-26 17:41] LABS: FREE T4 (FREE THYROXINE) 1.07 ng/dL (0.78-2.19)
[2019-02-26 17:55] LABS: THYROID STIMULATING HORMONE 1.7 uIU/mL (0.47-4.68)
--- NOTE | 2019-02-26 18:30 | EKG REPORT ---
SEVERITY:- ABNORMAL ECG - SINUS BRADYCARDIA LEFT VENTRICULAR HYPERTROPHY BORDERLINE ST ELEVATION, ANTEROLATERAL LEADS : Confirmed by: Mukul Mayo MD 26-Feb-2019 18:29:50
--- NOTE | 2019-02-26 21:50 | PDOC H&P ---
History of Present Illness Admission Date/PCP: 02/26/19 14:56 ADDIS ACUNA MD History of Present Illness: GAB APARICIO is a 69 year old female,She came to the office today with complaint of chest pain the chest pain is right-sided atypical, blood pressure was elevated, she was accompanied by the daughter.She has multiple risk factors for ischemic heart disease including uncontrolled hypertension, type 2 diabetes mellitus, sedentary existence, postmenopausal state, because of for this risk despite the fact that the chest pain is atypical I felt the best approach to managing her symptoms is to admit her in to the hospital for observation and evaluation., A 2D echo was done, it demonstrated normal-sized left ventricle, normal wall thickness of the left ventricle, the ejection fraction of the left ventricle is more than 65% Doppler measurements suggest impaired left ve ntricular relaxation associated with grade 1 diastolic dysfunction has no valvular heart disease. 3 sets of cardiac enzymes were negative for myocardial infarction. She has resistant hypertension, she was evaluated outpatient for secondary causes of persistent hypertension, the MRA of the renal arteries did not demonstrate any stenosis of the renal artery. There was no mechanical evidence of endocrinopathy, there was no Chang's syndrome there was no hyperaldosteronism.Patient's daughter is a nurse practitioner, she was particularly concerned about her disease, she felt that she has heart disease and the heart disease is the cause of the resistant hypertension. I tried to explain to her that heart disease does not by itself because hypertension but hypertension can cause heart disease, severe cardiomyopathy can cause low blood pressure the issue in the auscultation is hypertension that is difficult to treat despite taking 4 medications, That was the reason why she was evaluated fo r secondary hypertension and all came out negative Past Medical History Cardiac Medical History: Reports: Coronary Artery Disease - HIGH CHOLESTEROL, Hyperlipidema, Hypertension Pulmonary Medical History: Reports: Asthma - RAN OUT OF INHALERS, Pneumonia Endocrine Medical History: Reports: Diabetes Mellitus Type 2 GI Medical History: Reports: Gastroesophageal Reflux Disease Musculoskeltal Medical History: Reports: Arthritis Psychiatric Medical History: Reports: Depression Past Surgical History Past Surgical History: Reports: Hysterectomy, Orthopedic Surgery - R wrist Social History Smoking Status: Former Smoker Frequency of Alcohol Use: None Hx Recreational Drug Use: No Drugs: None Hx Prescription Drug Abuse: No Family History Family History: Reviewed & Not Pertinent Parental Family History Reviewed: Yes Children Family History Reviewed: Yes Sibling(s) Family History Reviewed.: Yes Medication/Allergy Home Medications: Glipizide [Glucotrol] 10 mg PO BID 01/06/19 Insulin Aspart [Novolog Flexpen] 5 unit SQ BID 01/06/19 Insulin Detemir [Levemir] 25 unit SQ QHS 01/06/19 Metformin HCl [Glucophage] 500 mg PO BID 01/06/19 Metoprolol Succinate [Toprol XL 100 mg Tablet] 100 mg PO Q12 01/06/19 Montelukast Sodium [Singulair] 10 mg PO DAILY 01/26/19 Amlodipine/Valsartan/Hcthiazid [Eshkf-Fmzup-Bydk 10-320-25 mg] 1 each PO DAILY 02/03/19 Hydralazine HCl [Apresoline 25 mg Tablet] 25 mg PO BID #40 tab 02/27/19 Allergies/Adverse Reactions: atorvastatin [From Lipitor] Allergy (Intermediate, Unverified 02/26/19 15:54) myalgia Review of Systems Constitutional: PRESENT: fatigue Eyes: ABSENT: visual disturbances Ears: ABSENT: hearing changes Cardiovascular: PRESENT: chest pain Respiratory: ABSENT: cough, hemoptysis Gastrointestinal: ABSENT: abdominal pain, constipation, diarrhea, hematemesis, hematochezia, nausea, vomiting Genitourinary: ABSENT: dysuria, hematuria Musculoskeletal: ABSENT: joint swelling Integumentary: ABSENT: rash, wounds Neurological: ABSENT: abnormal gait, abnormal speech, confusion, dizziness, focal weakness, syncope Psychiatric: ABSENT: anxiety, depression, homidical ideation, suicidal ideation Endocrine: ABSENT: cold intolerance, heat intolerance, menstrual abnormalities, polydipsia, polyuria Hematologic/Lymphatic: ABSENT: easy bleeding, easy bruising, lymphadenopathy Physical Exam Vital Signs: Temp Pulse Resp BP Pulse Ox 97.8 F 58 L 20 179/70 H 97 02/26/19 19:52 02/26/19 19:52 02/26/19 19:52 02/26/19 19:52 02/26/19 19:52 Intake & Output 02/25/19 02/26/19 02/27/19 06:59 06:59 06:59 Intake Total 0 Balance 0 Weight 99.5 kg General appearance: PRESENT: no acute distress, well-developed, well-nourished Head exam: PRESENT: atraumatic, normocephalic Eye exam: PRESENT: conjunctiva pink, EOMI, PERRLA Ear exam: PRESENT: normal external ear exam Mouth exam: PRESENT: moist, tongue midline Neck exam: PRESENT: full ROM Respiratory exam: PRESENT: clear to auscultation jessica Cardiovascular exam: PRESENT: RRR, +S1, +S2 Pulses: PRESENT: normal dorsalis pedis pul, +2 pedal pulses bilateral Vascular exam: PRESENT: normal capillary refill GI/Abdominal exam: PRESENT: normal bowel sounds, soft Rectal exam: PRESENT: deferred Neurological exam: PRESENT: alert, CN II-XII grossly intact Psychiatric exam: PRESENT: appropriate affect, normal mood Skin exam: PRESENT: dry, intact, warm. ABSENT: cyanosis, rash Results Laboratory Results: 02/26/19 16:47 02/26/19 16:47 02/26/19 02/26/19 02/26/19 16:47 16:47 16:47 WBC 10.7 H RBC 5.55 H Hgb 13.8 Hct 42.0 MCV 76 L MCH 24.9 L MCHC 33.0 RDW 15.7 H Plt Count 277 Seg Neutrophils % 47.6 Sodium 141.2 Potassium 3.6 Chloride 101 Carbon Dioxide 28 Anion Gap 12 BUN 13 Creatinine 0.51 L Est GFR ( Amer) > 60 Glucose 85 Calcium 10.2 Total Bilirubin 0.9 AST 28 Alkaline Phosphatase 100 Total Protein 8.0 Albumin 4.4 TSH 1.70 Free T4 1.07 02/26/19 02/26/19 16:47 16:47 Creatine Kinase 34 CK-MB (CK-2) 0.38 Troponin I 0.012 NT-Pro-B Natriuret Pep 120 Assessment & Plan - Diagnosis (1) Chest pain Qualifiers: Chest pain type: unspecified Qualified Code(s): R07.9 - Chest pain, unspecified Is this a current diagnosis for this admission?: Yes Plan: Patient is admitted for the management of chest pain (2) Hypertensive urgency Is this a current diagnosis for this admission?: Yes
--- NOTE | 2019-02-26 22:03 | XCELERA REPORT ---
[address] [address] Transthoracic Echocardiogram Report Name: GAB APARICIO Age: 69 yrs Gender: Female : 1950 Patient Status: Inpatient Patient Location: [address] [place] [address] Study Date: 02/26/2019 05:22 PM Height: 62 in Weight: 222 lb BSA: 2.0 m2 Procedure: A two-dimensional transthoracic echocardiogram with color flow and Doppler was performed. The study was technically limited with all images being suboptimal in quality. Reason For Study: chest pain History: chest pain. Ordering Physician: ADDIS ACUNA Performed By: Annette Cardona Interpretation Summary The left ventricle is normal in size. There is normal left ventricular wall thickness. The left ventricular ejection fraction is within normal limits. LV EF is > than 65% Doppler measurements suggest impaired left ventricular relaxation, which is associated with grade I/IV or mild diastolic dysfunction The left ventricular wall motion is normal. There is no thrombus. No ASD , VSD , or PFO seen. The right ventricle is normal in size and function. The right atrium is normal. The left atrium is mildly dilated. There is no evidence of mitral valve prolapse. There is no vegetation seen on the mitral valve. There is no mitral valve stenosis. There is a mild amount of mitral regurgitation There is no aortic valvular vegetation. There is no aortic valve stenosis There is no LVOT obstruction. No aortic regurgitation is present. There is no tricuspid stenosis. There is a trace to mild amount of tricuspid regurgitation Right ventricular systolic pressure is normal. RVSP is 23 to 28 mm of H , with RA mean of 5 to 10. There is no pulmonic valvular stenosis. There is no pulmonic valvular regurgitation. The aortic root is normal size. The inferior vena cava appeared normal and decreased > 50% with respiration (RAP 5-10 mmHg) There is no pericardial effusion. MMode/2D Measurements & Calculations RVDd: 2.3 cm LVIDd: 4.8 cm FS: 37.2 % Ao root diam: 2.2 cm IVSd: 1.1 cm LVIDs: 3.0 cm EDV(Teich): Ao root area: LVPWd: 1.1 cm 105.1 ml 3.7 cm2 ESV(Teich): 34.6 mlLA dimension: 4.3 cm EF(Teich): 67.1 % LVLd ap4: 5.8 cm SV(MOD-sp4): EDV(MOD-sp4): 59.0 ml 75.0 ml LVLs ap4: 4.2 cm ESV(MOD-sp4): 16.0 ml EF(MOD-sp4): 78.7 % Doppler Measurements & Calculations MV E max maggie: MV P1/2t max maggie: Ao V2 max: LV V1 max P.0 cm/sec 114.8 cm/sec 172.5 cm/sec 8.1 mmHg MV A max maggie: MV P1/2t: 57.5 msec Ao max PG: LV V1 max: 94.3 cm/sec MVA(P1/2t): 3.8 cm2 11.9 mmHg 142.5 cm/sec MV E/A: 0.77 MV dec slope: 584.8 cm/sec2 MV dec time: 0.21 sec PA V2 max: TR max maggie: MV P1/2t-pr_phl: 124.9 cm/sec 214.1 cm/sec 57.5 msec PA max PG: TR max P.3 mmHg 6.2 mmHg Left Ventricle The left ventricle is normal in size. There is normal left ventricular wall thickness. The left ventricular ejection fraction is within normal limits. LV EF is > than 65%. Doppler measurements suggest impaired left ventricular relaxation, which is associated with grade I/IV or mild diastolic dysfunction. The left ventricular wall motion is normal. There is no thrombus. No ASD , VSD , or PFO seen. Right Ventricle The right ventricle is normal in size and function. Atria The right atrium is normal. The left atrium is mildly dilated. Mitral Valve There is no evidence of mitral valve prolapse. There is no vegetation seen on the mitral valve. There is no mitral valve stenosis. There is a mild amount of mitral regurgitation. Aortic Valve There is no aortic valvular vegetation. There is no aortic valve stenosis. There is no LVOT obstruction. No aortic regurgitation is present. Tricuspid Valve There is no tricuspid stenosis. There is a trace to mild amount of tricuspid regurgitation. Right ventricular systolic pressure is normal. RVSP is 23 to 28 mm of H , with RA mean of 5 to 10. Pulmonic Valve There is no pulmonic valvular stenosis. There is no pulmonic valvular regurgitation. Great Vessels The aortic root is normal size. The inferior vena cava appeared normal and decreased > 50% with respiration (RAP 5-10 mmHg). Effusions There is no pericardial effusion. : ADDIS ACUNA, Vicki
[2019-02-26] MEDS ORDERED: CLONIDINE HCL 0.2 MG TABLET PO ONE (23:30)
[2019-02-27 01:52] LABS: CREATINE KINASE MB < 0.22 ng/mL (<4.55); TROPONIN I < 0.012 ng/mL
[2019-02-27 08:09] LABS: TROPONIN I 0.014 ng/mL
[2019-02-27 08:11] LABS: CREATINE KINASE MB < 0.22 ng/mL (<4.55)
[2019-02-27 10:29] LABS: APPEARANCE,URINE SLIGHTLY-CLOUDY; BILIRUBIN,URINE NEGATIVE (NEGATIVE); COLOR,URINE AMBER; GLUCOSE, URINE NEGATIVE (NEGATIVE); KETONES,URINE NEGATIVE (NEGATIVE); LEUKOCYTE ESTERASE,URINE SMALL (NEGATIVE); NITRITE,URINE POSITIVE (NEGATIVE); PROTEIN,URINE NEGATIVE (NEGATIVE); URINE SPECIFIC GRAVITY 1.021; UROBILINOGEN,URINE NEGATIVE mg/dL (<2.0)
[2019-02-27] MEDS ORDERED: REGADENOSON INJ 0.4 MG/5 ML DISP.SYRIN IV ONE (10:48)
[2019-02-27] MEDS ORDERED: [UNRECOGNIZED DRUG - OTHER] PO SCH (15:00)
[2019-02-27] MEDS ORDERED: VALSARTAN PO SCH (15:00)
[2019-02-27] MEDS ORDERED: HCTHIAZID PO SCH (15:00)
[2019-02-27] MEDS ORDERED: AMLODIPINE PO SCH (15:00)
[2019-02-27] MEDS ORDERED: MONTELUKAST SODIUM 10 MG TABLET PO SCH (16:00)
[2019-02-27] MEDS ORDERED: HYDROCHLOROTHIAZIDE 25 MG TABLET PO SCH (16:00)
[2019-02-27] MEDS ORDERED: VALSARTAN 160 MG TABLET PO SCH (16:00)
[2019-02-27] MEDS ORDERED: AMLODIPINE BESYLATE 10 MG TABLET PO SCH (16:00)
[2019-02-27] MEDS ORDERED: (PENDING PHARMACY ID) (Metformin Hcl [Glucophage] 500 MG) PO SCH (18:00)
[2019-02-27] MEDS ORDERED: GLIPIZIDE 10 MG TABLET PO SCH (18:00)
[2019-02-27] MEDS ORDERED: (PENDING PHARMACY ID) (Insulin Aspart [Novolog Flexpen] 5 UNIT) SQ SCH (18:00)
[2019-02-27] MEDS ORDERED: METFORMIN HCL 500 MG TABLET PO SCH (18:00)
[2019-02-27] MEDS ORDERED: INSULIN LISPRO 100 UNIT/ML 3 ML VIAL SUBCUT SCH (18:00)
[2019-02-27 18:17] VITALS: BP 174/55
--- NOTE | 2019-02-27 20:36 | PDOC DISCHARGE SUMMARY ---
General - Admit/Disc Date/PCP Admission Date/Primary Care Provider: 02/26/19 14:56 ADDIS ACUNA MD Discharge Date: 02/27/19 - Discharge Diagnosis (1) Chest pain Is this a current diagnosis for this admission?: Yes (2) Hypertensive urgency Is this a current diagnosis for this admission?: Yes - Additional Information Discharge Diet: As Tolerated Discharge Activity: Activity As Tolerated Prescriptions: RX: Hydralazine HCl [Apresoline 25 mg Tablet] 25 mg PO BID #40 tab Home Medications: RX: Glipizide [Glucotrol] 10 mg PO BID 01/06/19 RX: Insulin Aspart [Novolog Flexpen] 5 unit SQ BID 01/06/19 RX: Insulin Detemir [Levemir] 25 unit SQ QHS 01/06/19 RX: Metformin HCl [Glucophage] 500 mg PO BID 01/06/19 RX: Metoprolol Succinate [Toprol XL 100 mg Tablet] 100 mg PO Q12 01/06/19 RX: Montelukast Sodium [Singulair] 10 mg PO DAILY 01/26/19 RX: Amlodipine/Valsartan/Hcthiazid [Jujnz-Ogdcx-Wfoj 10-320-25 mg] 1 each PO DAILY 02/03/19 RX: Hydralazine HCl [Apresoline 25 mg Tablet] 25 mg PO BID #40 tab 02/27/19 History of Present Illness History of Present Illness: GAB APARICIO is a 69 year old female,She came to the office today with complaint of chest pain the chest pain is right-sided atypical, blood pressure was elevated, she was accompanied by the daughter.She has multiple risk factors for ischemic heart disease including uncontrolled hypertension, type 2 diabetes mellitus, sedentary existence, postmenopausal state, because of for this risk despite the fact that the chest pain is atypical I felt the best approach to managing her symptoms is to admit her in to the hospital for observation and evaluation., A 2D echo was done, it demonstrated normal-sized left ventricle, normal wall thickness of the left ventricle, the ejection fraction of the left ventricle is more than 65% Doppler measurements suggest impaired left ventricular relaxation associated with grade 1 diastolic dysfunction has no valvular heart disease. 3 sets of cardiac enzymes were negative for myocardial infarction. She has resistant hypertension, she was evaluated outpatient for secondary causes of persistent hypertension, the MRA of the renal arteries did not demonstrate any stenosis of the renal artery. There was no mechanical evidence of endocrinopathy, there was no Marietta's syndrome there was no hyperaldosteronism.Patient's daughter is a nurse practitioner, she was particularly concerned about her disease, she felt that she has heart disease and the heart disease is the cause of the resistant hypertension. I tried to explain to her that heart disease does not by itself because hypertension but hypertension can cause heart disease, severe cardiomyopathy can cause low blood pressure the issue in the auscultation is hypertension that is difficult to treat despite taking 4 medications, That was the reason why she was evaluated for secondary hypertension and all came out negative Hospital Course Hospital Course: Patient was admitted for observation, evaluation of chest pain.3 Sets of cardiac enzymes were negative for acute myocardial infarction.She underwent Cardiolite Lexiscan stress test there was no reversibility to suggest ischemia Physical Exam Vital Signs: Temp Pulse Resp BP Pulse Ox 97.3 F 55 L 17 174/55 H 100 02/27/19 18:00 02/27/19 18:00 02/27/19 18:00 02/27/19 18:00 02/27/19 18:00 Intake & Output 02/26/19 02/27/19 02/28/19 06:59 06:59 06:59 Intake Total 240 460 Output Total 450 300 Balance -210 160 Weight 99.4 kg General appearance: PRESENT: no acute distress, well-developed, well-nourished Head exam: PRESENT: atraumatic, normocephalic Eye exam: PRESENT: conjunctiva pink, EOMI, PERRLA Ear exam: PRESENT: normal external ear exam Mouth exam: PRESENT: moist, tongue midline Neck exam: PRESENT: full ROM Respiratory exam: PRESENT: clear to auscultation jessica Cardiovascular exam: PRESENT: RRR, +S1, +S2 Pulses: PRESENT: normal dorsalis pedis pul, +2 pedal pulses bilateral Vascular exam: PRESENT: normal capillary refill GI/Abdominal exam: PRESENT: normal bowel sounds, soft Rectal exam: PRESENT: deferred Neurological exam: PRESENT: alert, awake, oriented to person, oriented to place, oriented to time, oriented to situation, CN II-XII grossly intact Psychiatric exam: PRESENT: appropriate affect, normal mood Skin exam: PRESENT: dry, intact, warm Results Laboratory Results: 02/26/19 16:47 02/26/19 16:47 02/27/19 08:15 Urine Color DELLA Urine Appearance SLIGHTLY-CLOUDY Urine pH 5.0 Ur Specific [place] 1.021 Urine Protein NEGATIVE Urine Glucose (UA) NEGATIVE Urine Ketones NEGATIVE Urine Blood NEGATIVE Urine Nitrite POSITIVE H Ur Leukocyte Esterase SMALL H Urine WBC (Auto) 14 Urine RBC (Auto) 3 02/26/19 02/26/19 02/27/19 16:47 16:47 00:51 Creatine Kinase 34 27 L CK-MB (CK-2) 0.38 Troponin I 0.012 NT-Pro-B Natriuret Pep 120 02/27/19 02/27/19 02/27/19 00:51 07:33 07:33 Creatine Kinase 24 L CK-MB (CK-2) < 0.22 < 0.22 Troponin I < 0.012 0.014 NT-Pro-B Natriuret Pep Qualifiers - * PATIENT BEING DISCHARGED WITH ANY OF THE FOLLOWING DIAGNOSIS: No VTE patient discharged on overlapping Therapy?: No Reason(s) for not prescribing Overlap Therapy:: Not indicated Stroke Pt being discharged on Anti-thrombolytic therapy?: No Reason(s) for not prescribing Anti-thrombolytic therapy:: Not indicated Stroke Pt being discharged on Anti-coagulation therapy?: No Reason(s) for not prescribing Anti-coagulation therapy:: Not indicated Stroke Pt being discharged on Statins?: No Reason(s) for not prescribing Statins therapy:: Not indicated VT Pt being discharged on Aspirin therapy?: No Reason(s) for not prescribing Aspirin therapy:: Not indicated VT Pt being discharged on Statins?: No Reason(s) for not prescribing Statin therapy:: Not indicated VT Pt discharged ACEI/ARBS?: No Reason(s) for not prescribing ACEI/ARBS:: Not indicated Acute Heart Failure - Is this a Heart Failure Patient?: No Follow-up Appointment scheduled within 7 days?: Yes
[2019-02-27] MEDS ORDERED: INSULIN DETEMIR 25 UNIT SQ SCH (22:00)
[2019-02-27] MEDS ORDERED: METOPROLOL SUCCINATE 50 MG TAB.SR.24H PO SCH (22:00)
[2019-02-27] MEDS ORDERED: INSULIN GLARGINE,HUM.REC.ANLOG 1,000 UNIT/10 ML VIAL SUBCUT SCH (22:00)
--- NOTE | 2019-03-05 01:12 | DRAGON STRESS TEST REPORT ---
Intravenous Lexiscan Cardiolite stress test using single photon emmision computerized tomography. Date of procedure: 02/27/2019. Ordering Provider: Dr. Nicole. Patient's status: In Patient. Indication: Chest pain. Coronary risk factors: Age, diabetes, and hypertension. Resting EKG: Sinus Bradycardia. LVH with strain pattern. Stress EKG: No changes of ischemia. The patient has no chest pain or discomfort, and there were no arrhythmias seen. Reason for termination: Protocol. Conclusions: Normal EKG and hemodynamic response to IV Lexiscan. Nuclear data: At rest the patient was given 14.94 millicuries of technetium 99m sestamibi injected intravenously. As per protocol rest non gated SPECT images were obtained. Subsequently the patient was given intravenous Lexiscan at a dose of 0.4 mg in 5 mL intravenously, followed by flush with normal saline. Subsequently the stress dose of 45.4 millicuries of technetium 99m sestamibi was injected intravenously. As per protocol stress gated images were obtained. Nuclear interpretation: Review of images showed that all segments of the myocardium had normal perfusion at rest, and normal perfusion post stress with IV Lexiscan. All segments of the myocardium had normal motion, contraction, and thickening by gated study. T. I D. ratio was normal at 1.08. There is no transient ischemic dilatation of the left ventricle. Computer read rest, and stress left ventricular ejection fraction were 65 %, and C7 %, respectively. Conclusion: 1. There is no scintigraphic evidence of Lexiscan induced myocardial ischemia. 2. There is no scintigraphic evidence of myocardial infarction/scar. Recommendations: Aggressive risk factor modification, and treating the underlying co- morbidities. MTDD
== END 2019-02-27 18:46 | disposition home or self-care (01) ==
LOC: 3S 14:56
PROVIDERS: ADMIT Internal Medicine; ATTEND Internal Medicine
DX: R07.89 Other chest pain (principal); I16.0 Hypertensive urgency; E11.49 Type 2 diabetes mellitus with other diabetic neurological complication; Z78.0 Asymptomatic menopausal state; J45.909 Unspecified asthma, uncomplicated; R53.83 Other fatigue; M15.9 Polyosteoarthritis, unspecified; E78.5 Hyperlipidemia, unspecified; K21.9 Gastro-esophageal reflux disease without esophagitis; M79.7 Fibromyalgia; Z79.899 Other long term (current) drug therapy; Z79.4 Long term (current) use of insulin; Z87.891 Personal history of nicotine dependence; Z86.73 Personal history of transient ischemic attack (TIA), and cerebral infarction without residual deficits; Z82.49 Family history of ischemic heart disease and other diseases of the circulatory system
CPT/HCPCS: 36415 ×2; 84439; 82553 ×2; 82962 ×2; 82550 ×2; 84443; 85025; 80076; 80048; 81001; 84484 ×2; 83036; 85379; 83880; 93306; 93017; 78452; 93005; 93010; G0378 ×2; G0379; A9500; J2785; A9270 ×8; Q9969; J1815; J3490

== ENCOUNTER → 2019-03-13 | Outpatient (CLI) | payer MEDICARE, OTHER ==
--- NOTE | 2019-03-13 13:54 | WOMENS IMAGING REPORT ---
EXAM DESCRIPTION: 3D SCREENING MAMMO BILAT COMPLETED DATE/TIME: 03/13/2019 10:53 am REASON FOR STUDY: Z12.31 SCREENING MAMMO Z12.31 ENCNTR SCREEN MAMMOGRAM FOR MALIGNANT NEOPLASM OF B RE COMPARISON: Multiple since 2009 EXAM PARAMETERS: Standard craniocaudal and mediolateral oblique views of each breast recorded using digital acquisition and breast tomosynthesis. Read with the assistance of CAD. .FORMERLY [facility] - [place] [facility] Version 9.2 LIMITATIONS: None. FINDINGS: Findings present which are benign by mammographic criteria. No suspicious masses, calcific ations or architectural distortion. Pertinent benign findings: Old postsurgical changes right breast lateral to the nipple. Benign mammographic findings may include one or more of the following: Smooth masses, popcorn/rim/coa rse calcifications, asymmetries, post-procedure changes, and lesions with long-standing stability. IMPRESSION: BENIGN MAMMOGRAPHIC FINDINGS. BIRADS 2 BREAST DENSITY: b. There are scattered areas of fibroglandular density. BIRAD: ASSESSMENT: 2 BENIGN FINDING(S) RECOMMENDATION: ROUTINE SCREENING Please continue yearly bilateral screening mammography/tomosynthesis in March 2020. COMMENT: The patient has been notified of the results by letter per MQSA requirements. Additional no tification policies are in place for contacting patient with suspicious or incomplete findings. Quality ID #[id number]: The [employer] recommends an annual screening mammogram for women aged 40 years or over. This facility utilizes a reminder system to ensure that all patients receive reminder letters, and/or direct phone calls for appointments. This includes reminders for routine scr eening mammograms, diagnostic mammograms, or other Breast Imaging Interventions when appropriate. Th is patient will be placed in the appropriate reminder system. TECHNICAL DOCUMENTATION: FINDING NUMBER: (1) ASSESSMENT: (1) JOB ID: [id number] [employer]- All Rights Reserved Reading location - IP/workstation name: [email or web address]
== END ==
LOC: WI 10:30
PROVIDERS: ATTEND Internal Medicine
DX: Z12.31 Encounter for screening mammogram for malignant neoplasm of breast (principal)
CPT/HCPCS: 77063; 77067

== ENCOUNTER 2019-05-12 06:06 | Observation (INO) | payer MEDICARE, OTHER ==
[2019-05-05 08:23] LABS: ABSOLUTE BASOPHILS # (AUTO) 0.1 10^3/uL (0.0-0.2); ABSOLUTE EOSINOPHILS # (AUTO) 0.2 10^3/uL (0.0-0.6); ABSOLUTE LYMPHOCYTES (AUTO) 4.1 10^3/uL (0.5-4.7); ABSOLUTE NEUT (AUTO) 3.6 10^3/uL (1.7-8.2); BASOPHILS % (AUTO) 0.8 % (0-2); HEMOGLOBIN 12.6 g/dL (12.0-15.5); LYMPHOCYTES % (AUTO) 45.5 % (13-45); MEAN CORPUSCULAR HEMOGLOBIN 25.1 pg (27.0-33.4); MEAN CORPUSCULAR HGB CONC 33.1 g/dL (32.0-36.0); MEAN CORPUSCULAR VOLUME 76 fl (80-97); MONOCYTES % (AUTO) 11.2 % (3-13); PLATELET COUNT 221 10^3/uL (150-450); RED CELL DISTRIBUTION WIDTH 15.3 % (11.5-14.0); SEGMENTED NEUTROPHILS % (AUTO) 40.5 % (42-78); TOTAL CELLS COUNTED % (AUTO) 100 %; WHITE BLOOD COUNT 8.9 10^3/uL (4.0-10.5)
[2019-05-05 08:58] LABS: ANION GAP 11 (5-19); BLOOD UREA NITROGEN 18 mg/dL (7-20); CALCIUM 9.8 mg/dL (8.4-10.2); CARBON DIOXIDE 27 mmol/L (22-30); CHLORIDE 104 mmol/L (98-107); GLUCOSE 187 mg/dL (75-110); POTASSIUM 3.7 mmol/L (3.6-5.0)
--- NOTE | 2019-05-05 09:29 | RADIOLOGY REPORT (SQ) ---
EXAM DESCRIPTION: CHEST PA/LATERAL COMPLETED DATE/TIME: 05/05/2019 9:07 am REASON FOR STUDY: PRE-OP COMPARISON: 01/27/2019 EXAM PARAMETERS: NUMBER OF VIEWS: two views TECHNIQUE: Digital Frontal and Lateral radiographic views of the chest acquired. RADIATION DOSE: NA LIMITATIONS: none FINDINGS: LUNGS AND PLEURA: No opacities, masses or pneumothorax. No pleural effusion. Unchanged bi apical scarring. MEDIASTINUM AND HILAR STRUCTURES: No masses or contour abnormalities. HEART AND VASCULAR STRUCTURES: Enlarged cardiac silhouette, stable. Aortic atherosclerosis. BONES: No acute findings. HARDWARE: None in the chest. OTHER: No other significant finding. IMPRESSION: Stable enlarged cardiac silhouette without other evidence of acute intrathoracic process . TECHNICAL DOCUMENTATION: JOB ID: [id number] [employer]- All Rights Reserved Reading location - IP/workstation name: [email or web address]
--- NOTE | 2019-05-05 18:34 | EKG REPORT ---
SEVERITY:- ABNORMAL ECG - SINUS RHYTHM PROBABLE LEFT ATRIAL ABNORMALITY PROBABLE LEFT VENTRICULAR HYPERTROPHY BORDERLINE T ABNORMALITIES, INFERIOR LEADS : Confirmed by: Doyle Omer 05-May-2019 18:33:42
[~2019-05-12 06:06] MED LIST changes: +CEFAZOLIN SODIUM 2 GM in DEXTROSE 5%-WATER 100 ML IV PRN; -DEXAMETHASONE SOD PHOSPHATE INJ 4 MG/1 ML VIAL ONE; -EPHEDRINE SULFATE INJ 50 MG/1 ML AMPULE ONE; -FENTANYL CITRATE INJ/PF 100 MCG/2 ML AMPUL ONE; -FENTANYL CITRATE INJ/PF 250 MCG/5 ML AMPULE ONE; +LACTATED RINGERS 1000 ML IV PRN; -LIDOCAINE 0.5% INJ-PF (5 MG/ML) 50 ML SDV ONE; +LIDOCAINE 0.5% INJ-PF (5 MG/ML) 50 ML SDV SUBCUT PRN; -MIDAZOLAM 2 MG/2 ML INJ ONE; -ONDANSETRON HCL INJ/PF 4 MG/2 ML SDV ONE; -PROPOFOL INJ 200 MG/20 ML VIAL IV ONE; +ROCURONIUM BROMIDE INJ 50 MG/5 ML VIAL IV ONE; +SUCCINYLCHOLINE CHLORIDE INJ 200 MG/10 ML VIAL ONE
[2019-05-12] MEDS ORDERED: MIDAZOLAM 2 MG/2 ML INJ ONE (06:35)
[2019-05-12] MEDS ORDERED: FENTANYL CITRATE INJ/PF 250 MCG/5 ML AMPULE ONE (06:35)
[2019-05-12] MEDS ORDERED: HYDROMORPHONE HCL INJ/PF 2 MG/ML AMPULE ONE (06:35)
[2019-05-12] MEDS ORDERED: EPHEDRINE SULFATE INJ 50 MG/1 ML AMPULE ONE (06:36)
[2019-05-12] MEDS ORDERED: PROPOFOL INJ 200 MG/20 ML VIAL IV ONE (06:36)
[2019-05-12] MEDS ORDERED: ONDANSETRON HCL INJ/PF 4 MG/2 ML SDV ONE (06:36)
[2019-05-12] MEDS ORDERED: DEXAMETHASONE SOD PHOSPHATE INJ 4 MG/1 ML VIAL ONE (06:36)
[2019-05-12] MEDS ORDERED: EPINEPHRINE INJ/PF 1 MG/1 ML AMPULE ONE (07:52)
[2019-05-12] MEDS ORDERED: CLINDAMYCIN 600 MG/D5W RTU 600 MG/50 ML RTUPB IV ONE (08:04)
[2019-05-12] MEDS ORDERED: BETAMET ACET/BETAMET NA INJ 6 MG/1 ML INJ PRN (08:15)
[2019-05-12 09:10] LABS: APPEARANCE,URINE CLEAR; BILIRUBIN,URINE NEGATIVE (NEGATIVE); COLOR,URINE COLORLESS; GLUCOSE, URINE 150 mg/dL (NEGATIVE); KETONES,URINE NEGATIVE (NEGATIVE); LEUKOCYTE ESTERASE,URINE NEGATIVE (NEGATIVE); NITRITE,URINE NEGATIVE (NEGATIVE); PROTEIN,URINE NEGATIVE (NEGATIVE); URINE SPECIFIC GRAVITY 1.006; UROBILINOGEN,URINE NEGATIVE mg/dL (<2.0)
[2019-05-12] MEDS ORDERED: FENTANYL CITRATE INJ/PF 100 MCG/2 ML AMPUL IV PRN ×2 (09:19)
[2019-05-12] MEDS ORDERED: DIPHENHYDRAMINE HCL 50 MG/ML VIAL IV PRN (09:19)
[2019-05-12] MEDS ORDERED: PROMETHAZINE HCL INJ 25 MG/1 ML VIAL IV PRN (09:19)
[2019-05-12] MEDS ORDERED: MEPERIDINE HCL/PF INJ 25 MG/1 ML DISP.SYRIN IV PRN (09:19)
[2019-05-12] MEDS ORDERED: ONDANSETRON HCL INJ/PF 4 MG/2 ML SDV IV PRN (10:22)
--- NOTE | 2019-05-12 10:27 | Operative Report ---
Operative Report DATE OF SURGERY: 05/12/19 PREOPERATIVE DIAGNOSIS: Right shoulder rotator cuff tear, AC joint arthritis, i mpingement syndrome, degenerative SLAP tear. Left shoulder subacromial bursitis POSTOPERATIVE DIAGNOSIS: Same OPERATION: Right shoulder arthroscopy with rotator cuff repair, distal clavicle excision, acromioplasty, biceps tenotomy. Left shoulder corticosteroid injection SURGEON: ELIJAH ANGEL ANESTHESIA: GA COMPLICATIONS: None ESTIMATED BLOOD LOSS: Minimal PROCEDURE: Indication for above procedure: 69-year-old female with long-standing history of right shoulder discomfort. Patient MRI confirming rotator cuff tear. Originally attempted surgical intervention however patient developed cardiac issues and thus cardiac clearance was obtained. Patient was deemed surgically stable for operative treatment per cardiology and thus patient was once again sent for operative treatment. Patient failed conservative management including multiple injections and anti- inflammatories without resolution of her symptoms. Procedure In Detail: Patient was seen and evaluated in the preoperative holding area. The RIGHT uppe r extremity was initialized and marked. Patient received 2g of Ancef IV and 600mg IV Clindamycin for bacterial prophylaxis. Patient was taken back to the operative room where transferred to the operative table and placed under general anesthesia. Once they were adequately anesthetized patient placed in the beachchair position. Cervical spine was placed in neutral position all bony prominences were padded including nonoperative upper extremity and bilateral lower extremity. A surgical team debriefing was performed ensuring all instrumentation was available, the surgical procedure was discussed with possible concerns reviewed. Left shoulder was injected with 1: 1 mixture of 1 cc / 6 mg Celestone, 1% lidocaine. The right upper extremity was prepped with ChloraPrep draped in a sterile fashion. A timeout was done identifying correct patient, procedure and extremity everyone in attendance agree with this and verbalized no concerns. Posterior portal was established arthroscope was introduced into the glenohumeral joint. Via triangulation anterior portal was established. Diagnostic arthroscopy demonstrated significant synovitis on the anterior aspect of the glenohumeral joint with degenerative tear of the biceps tendon. Biceps tenotomy was then performed. There is no evidence of glenohumeral degenerative changes. Subscapularis remained intact. The infraspinatus remained intact there was a high-grade tear of the supraspinatus. This area was marked with a PDS suture to ensure location within the subacromial space. Partial synovectomy was performed attention then turned to the subacromial space. Arthroscope was introduced into the subacromial space lateral portal established. Coracoacromial ligament was released but not excised. Subacromial decompression/bursectomy was performed with arthroscopic shaver. Acromial spur was identified along with AC joint degenerative changes. Acromioplasty was performed with arthroscopic bur. 8 mm of distal clavicle was excised with the arthroscopic bur as well. Inspection the rotator cuff demonstrated full- thickness tear of the supraspinatus. PDS suture was then removed. Greater tuberosity was debrided to cancellus bone to promote tendon to bone healing. Degenerative rotator cuff tissue was debrided. Decision was made to proceed with double row rotator cuff repair. A passport cannula was then inserted. Additional portal was established with 18-gauge needle. Swivel lock anchor was placed along the anterior medial row. A swivel lock anchor was then placed along the posterior medial row. The fiber tape loop was placed anteriorly and posteriorly. The loop was then cut leaving for strands for fixation. The anterior strand and posterior strand were placed into an additional swivel lock anchor which was implanted along the posterior lateral row with optimal tension to provide compression to the greater tuberosity. The remaining anterior and posterior limbs were placed into the fourth with a lock anchor and implanted along the anterior lateral row once again obtaining good compression. There was good compression of the rotator cuff there was small cuff of tissue along the midline which was further secured with the remaining fiber loop suture to the anterior anchor. At completion of the rotator cuff repair the rotator cuff moved as unit throughout range of motion. There was no evidence of impingement throughout range of motion with good tension. Portals were closed with interrupted 3-0 nylon suture. Wound was dressed Xeroform 4 x 4's ABDs and perforated tape. Patient was placed in the abduction sling. Sponge counts, instrument counts, needle counts were correct. Patient was then awoken from anesthesia. Transferred from the operating room table to the operating room stretcher. There was no intraoperative complications patient tolerated procedure well stable to PACU. Postoperative plan: Patient follow in the office in 2 weeks at which point we will proceed with wound check. Patient will begin physical therapy 5 weeks postoperatively as per rotator cuff repair protocol.
--- NOTE | 2019-05-12 10:44 | Discharge Summary ---
Discharge Summary (SDC) - Discharge Final Diagnosis: Right shoulder rotator cuff tear Date of Surgery: 05/12/19 Discharge Date: 05/12/19 Condition: Good Treatment or Instructions: Schedule Follow Up w/ Dr. Herbert Woodruff @ [facility] to be seen in 10-14 days or as scheduled [place]: [place]: [place]: May remove dressing on postop day #3, keep incision covered and dry. Cryocuff to shoulder May begin pendulum exercises along w/ hand, wrist and elbow range of motion 4x per day or as tolerated. May remove sling for hygiene purposes otherwise continue it at all times. Stool softener of choice when on pain medication. USE OF LVOA-EWN-JRQUZPT IBUPROFEN: Ibuprofen (Advil, Nuprin, Medipren, Motrin IB) is a medication for fever and pain control. In addition, it has anti- inflammatory effects which may be beneficial, especially in the treatment of injuries. It's best to take ibuprofen with food. Persons with ulcer disease or allergy to aspirin should notify their physician of this before taking ibuprofen. Ibuprofen can be given every four to six hours, for a total of four doses daily. Age Pain or fever dose Antiinflammatory dose 6-8 yr 200 mg (1 tab) 200 mg (1 tab) 9-11 yr 200 mg (1 tab) 200-400 mg (1-2 tab) 11-14 yr 200-400 mg (1-2 tab) 400 mg (2 tab) 15-adult 400 mg (2 tab) 600 mg (3 tab) ORAL NARCOTIC MEDICATION: You have been given a prescription for pain control. This medication is a narcotic. It's best taken with food, as nausea can result if taken on an empty stomach. Don't operate machinery or drive within six hours of taking this medic ation. Do not combine this medicine with alcohol, or with any medication which can cause sedation (such as cold tablets or sleeping pills) unless you get permission from the physician. Narcotics tend to cause constipation. If possible, drink plenty of fluids and eat a diet high in fiber and fruits. Please be aware that prescription narcotics also have the potential for abuse. People become addicted to these medications because of the general sense of wellbeing that they induce. This feeling along with a significant reduction in tension, anxiety, and aggression provides a stimulating seductive quality to these drugs. Once your pain is under control, we encourage you to discard your unused narcotics. Prescriptions: Oxycodone HCl/Acetaminophen [Percocet 7.5-325 mg Tablet] 1 tab PO Q6 PRN #25 tab PRN Reason: Referrals: ADDIS ACUNA MD [Primary Care Provider] - Discharge Diet: As Tolerated Respiratory Treatments at Home: Deep Breathing/Coughing, Incentive Spirometer Discharge Activity: No Lifting Over 10 Pounds, No Lifting/Push/Pulling Report the Following to Your Physician Immediately: Fever over 101 Degrees, Unusual Bleeding, Redness, Swelling, Warmth, Increased Soreness
[2019-05-12] MEDS ORDERED: LIDOCAINE 2%/EPINEPHRINE INJ 20 ML VIAL ONE (10:56)
[2019-05-12] MEDS ORDERED: LIDOCAINE 2% INJ (20 MG/ML) 20 ML MDV ONE (10:56)
[2019-05-12] MEDS ORDERED: ROPIVACAINE HCL 0.5% INJ/PF (5 MG/1 ML) 30 ML SDV ONE (10:57)
[2019-05-12] MEDS: FENTANYL CITRATE INJ/PF 100 MCG/2 ML AMPUL IV PRN ×4 (11:05→11:20)
[2019-05-12] MEDS: HYDROMORPHONE HCL INJ/PF 2 MG/ML AMPULE ONE ×7 (12:20→13:30)
[2019-05-12] MEDS ORDERED: INSULIN LISPRO 100 UNIT/ML 3 ML VIAL ONE ×2 (13:36→13:52)
[2019-05-12 14:18] LABS: PHOSPHORUS 3.9 mg/dL (2.5-4.5)
[2019-05-12] MEDS ORDERED: ACETAMINOPHEN 1,000 MG/100 ML RTUPB IV ONE (16:55)
[2019-05-12 17:07] LABS: ANION GAP 13 (5-19); BLOOD UREA NITROGEN 12 mg/dL (7-20); CALCIUM 9.4 mg/dL (8.4-10.2); CARBON DIOXIDE 27 mmol/L (22-30); CHLORIDE 101 mmol/L (98-107); GLUCOSE 305 mg/dL (75-110); POTASSIUM 4.3 mmol/L (3.6-5.0)
[2019-05-12] MEDS: OXYCODONE-ACETAMINOPHEN 5-325 MG TABLET PO PRN (18:24)
[2019-05-13] MEDS: OXYCODONE-ACETAMINOPHEN 5-325 MG TABLET PO PRN ×2 (00:44→12:32)
[2019-05-13] MEDS: HYDROMORPHONE HCL INJ/PF 2 MG/ML AMPULE IV PRN ×2 (09:32→19:30)
[2019-05-13] MEDS ORDERED: (PENDING PHARMACY ID) (Amlodipine/Valsartan/Hcthiazid [Amlod-Valsa-Hctz 10-320-25 Mg] 1 TA PO SCH (10:45)
[2019-05-13] MEDS ORDERED: GLIPIZIDE 10 MG TABLET PO ONE (11:00)
[2019-05-13] MEDS: VALSARTAN 160 MG TABLET PO SCH (11:38)
[2019-05-13] MEDS: HYDROCHLOROTHIAZIDE 25 MG TABLET PO SCH (11:39)
[2019-05-13] MEDS: METOPROLOL SUCCINATE 50 MG TAB.SR.24H PO SCH ×2 (11:39→21:43)
[2019-05-13] MEDS: MONTELUKAST SODIUM 10 MG TABLET PO SCH (11:39)
[2019-05-13] MEDS: CLONIDINE HCL 0.1 MG TABLET PO SCH ×2 (11:40→21:44)
[2019-05-13] MEDS: AMLODIPINE BESYLATE 10 MG TABLET PO SCH (11:40)
[2019-05-13] MEDS ORDERED: (PENDING PHARMACY ID) (Insulin Aspart [Novolog Flexpen] 5 UNIT) SQ SCH (12:00)
[2019-05-13] MEDS: INSULIN LISPRO 100 UNIT/ML 3 ML VIAL SUBCUT SCH ×2 (12:33→17:08)
[2019-05-13] MEDS ORDERED: INSULIN LISPRO 100 UNIT/ML 3 ML VIAL SUBCUT SCH (16:00)
[2019-05-13 16:47] LABS: ABSOLUTE BASOPHILS # (AUTO) 0.1 10^3/uL (0.0-0.2); ABSOLUTE LYMPHOCYTES (AUTO) 1.7 10^3/uL (0.5-4.7); ABSOLUTE MONOCYTES (AUTO) 1.7 10^3/uL (0.1-1.4); ABSOLUTE NEUT (AUTO) 12.9 10^3/uL (1.7-8.2); BASOPHILS % (AUTO) 0.6 % (0-2); EOSINOPHILS % (AUTO) 0.1 % (0-6); HEMATOCRIT 39.3 % (36.0-47.0); HEMOGLOBIN 12.9 g/dL (12.0-15.5); LYMPHOCYTES % (AUTO) 10.1 % (13-45); MEAN CORPUSCULAR HEMOGLOBIN 25.1 pg (27.0-33.4); MEAN CORPUSCULAR HGB CONC 32.8 g/dL (32.0-36.0); MEAN CORPUSCULAR VOLUME 76 fl (80-97); MONOCYTES % (AUTO) 10.6 % (3-13); PLATELET COUNT 231 10^3/uL (150-450); RED BLOOD COUNT 5.14 10^6/uL (3.72-5.28); RED CELL DISTRIBUTION WIDTH 15.3 % (11.5-14.0); SEGMENTED NEUTROPHILS % (AUTO) 78.6 % (42-78); TOTAL CELLS COUNTED % (AUTO) 100 %; WHITE BLOOD COUNT 16.4 10^3/uL (4.0-10.5)
[2019-05-13] MEDS ORDERED: (PENDING PHARMACY ID) (Metformin Hcl [Glucophage] 500 MG) PO SCH (17:00)
[2019-05-13] MEDS: GLIPIZIDE 10 MG TABLET PO SCH (17:08)
[2019-05-13] MEDS: METFORMIN HCL 500 MG TABLET PO SCH (17:08)
[2019-05-13 18:20] LABS: APPEARANCE,URINE CLEAR; BILIRUBIN,URINE NEGATIVE (NEGATIVE); COLOR,URINE YELLOW; GLUCOSE, URINE >=500 mg/dL (NEGATIVE); KETONES,URINE NEGATIVE (NEGATIVE); LEUKOCYTE ESTERASE,URINE TRACE (NEGATIVE); NITRITE,URINE NEGATIVE (NEGATIVE); PROTEIN,URINE NEGATIVE (NEGATIVE); URINE SPECIFIC GRAVITY 1.015; UROBILINOGEN,URINE NEGATIVE mg/dL (<2.0)
--- NOTE | 2019-05-13 19:15 | PDOC CONSULTATION ---
Consultation Consult Date: 05/13/19 Attending physician:: ELIJAH ANGEL Provider Consulted: ADDIS ACUNA Consult reason:: Medical management of the surgical patients History of Present Illness Admission Date/PCP: ADDIS ACUNA MD History of Present Illness: GAB APARICIO is a 69 year old female, She has a history of type 2 diabetes mellitus, she was admitted electively for right shoulder arthroscopy with rotator cuff repair, distal clavicle excision, acromioplasty, biceps tenotomy with corticosteroid injection of the left shoulder.There is a concern about excessive urination questionable diabetes insipidus. Patient has a history of diabetes mellitus hypertension, the excessive urination is in response to excessive fluid infusion. I saw her today by the bedside, she has not had physical therapy she is in bed sitting, she has sequential teds in place. I requested for hemogram, there is leukocytosis probably secondary to corticosteroid injection, no evidence of infection UA is not impressive, chest x-ray is ordered Past Medical History Cardiac Medical History: Reports: Coronary Artery Disease - HIGH CHOLESTEROL, Hyperlipidema, Hypertension Pulmonary Medical History: Reports: Asthma - inhalers, Pneumonia Endocrine Medical History: Reports: Diabetes Mellitus Type 2 GI Medical History: Reports: Gastroesophageal Reflux Disease Musculoskeltal Medical History: Reports: Arthritis Psychiatric Medical History: Reports: Depression Past Surgical History Past Surgical History: Reports: Hysterectomy, Orthopedic Surgery - R wrist Social History Smoking Status: Former Smoker Frequency of Alcohol Use: None Hx Recreational Drug Use: No Drugs: None Hx Prescription Drug Abuse: No - Advance Directive Resuscitation Status: Full Code Family History Family History: Reviewed & Not Pertinent Parental Family History Reviewed: Yes Children Family History Reviewed: Yes Sibling(s) Family History Reviewed.: Yes Medication/Allergy Home Medications: Glipizide [Glucotrol] 10 mg PO BID 01/06/19 Insulin Aspart [Novolog Flexpen] 5 unit SQ MEALS 01/06/19 Insulin Detemir [Levemir] 25 unit SQ QHS 01/06/19 Metformin HCl [Glucophage] 500 mg PO WSUPPER 01/06/19 Metoprolol Succinate [Toprol XL 100 mg Tablet] 100 mg PO Q12 01/06/19 Montelukast Sodium [Singulair] 10 mg PO QAM 01/26/19 Amlodipine/Valsartan/Hcthiazid [Tybie-Sortt-Urhm 10-320-25 mg] 1 tab PO QAM 02/03/19 Clonidine HCl [Catapres 0.1 mg Tablet] 0.1 mg PO BID 05/05/19 Allergies/Adverse Reactions: atorvastatin [From Lipitor] Allergy (Intermediate, Unverified 02/26/19 15:54) myalgia Review of Systems Constitutional: ABSENT: chills, fever(s), headache(s), weight gain, weight loss Eyes: ABSENT: visual disturbances Ears: ABSENT: hearing changes Cardiovascular: ABSENT: chest pain, dyspnea on exertion, edema, orthropnea, palpitations Respiratory: ABSENT: cough, hemoptysis Gastrointestinal: ABSENT: abdominal pain, constipation, diarrhea, hematemesis, hematochezia, nausea, vomiting Genitourinary: ABSENT: dysuria, hematuria Musculoskeletal: PRESENT: joint swelling Integumentary: ABSENT: rash, wounds Neurological: ABSENT: abnormal gait, abnormal speech, confusion, dizziness, focal weakness, syncope Psychiatric: ABSENT: anxiety, depression, homidical ideation, suicidal ideation Endocrine: ABSENT: cold intolerance, heat intolerance, menstrual abnormalities, polydipsia, polyuria Hematologic/Lymphatic: ABSENT: easy bleeding, easy bruising, lymphadenopathy Physical Exam Vital Signs: Temp Pulse Resp BP Pulse Ox 98.5 F 66 18 140/54 H 93 05/13/19 14:00 05/13/19 14:00 05/13/19 14:00 05/13/19 14:00 05/13/19 14:00 Intake & Output 05/12/19 05/13/19 05/14/19 06:59 06:59 06:59 Intake Total 64818 750 Output Total 55869 635 Balance 559 115 Weight 105 kg 103.9 kg General appearance: PRESENT: no acute distress Head exam: PRESENT: atraumatic, normocephalic Eye exam: PRESENT: PERRLA Neck exam: PRESENT: full ROM Respiratory exam: PRESENT: clear to auscultation jessica Cardiovascular exam: PRESENT: RRR, +S1, +S2 Vascular exam: PRESENT: normal capillary refill GI/Abdominal exam: PRESENT: normal bowel sounds, soft Rectal exam: PRESENT: deferred Neurological exam: PRESENT: alert, awake, oriented to person, oriented to place, oriented to time, oriented to situation, CN II-XII grossly intact Psychiatric exam: PRESENT: appropriate affect, normal mood Skin exam: PRESENT: dry, intact, warm Results Laboratory Results: 05/13/19 16:28 05/12/19 16:37 05/13/19 05/13/19 16:28 17:58 WBC 16.4 H RBC 5.14 Hgb 12.9 Hct 39.3 MCV 76 L MCH 25.1 L MCHC 32.8 RDW 15.3 H Plt Count 231 Seg Neutrophils % 78.6 H Urine Color YELLOW Urine Appearance CLEAR Urine pH 5.0 Ur Specific [place] 1.015 Urine Protein NEGATIVE Urine Glucose (UA) >=500 H Urine Ketones NEGATIVE Urine Blood MODERATE H Urine Nitrite NEGATIVE Ur Leukocyte Esterase TRACE H Urine WBC (Auto) 2 Urine RBC (Auto) 11 Impressions: Chest X-Ray 05/05/19 00:00 IMPRESSION: Stable enlarged cardiac silhouette without other evidence of acute intrathoracic process. Assessment & Plan - Diagnosis (1) Type 2 diabetes mellitus with diabetic polyneuropathy Qualifiers: Diabetes mellitus detention insulin use: with vermin exterminator use Qualified Code(s): E11.42 - Type 2 diabetes mellitus with diabetic polyneuropathy; Z79.4 - superintendent terminal (current) use of insulin Is this a current diagnosis for this admission?: Yes Plan: Patient seen, continue present management for diabetes, order physical therapy
--- NOTE | 2019-05-13 19:25 | RADIOLOGY REPORT (SQ) ---
EXAM DESCRIPTION: CHEST 2 VIEWS COMPLETED DATE/TIME: 05/13/2019 7:15 pm REASON FOR STUDY: pneumonia COMPARISON: 05/05/2019 EXAM PARAMETERS: NUMBER OF VIEWS: two views TECHNIQUE: Digital Frontal and Lateral radiographic views of the chest acquired. RADIATION DOSE: NA LIMITATIONS: none FINDINGS: LUNGS AND PLEURA: Lung álvarez are clear. There appears to be subcutaneous emphysema overl marisela the right lateral chest wall and shoulder. Clinical correlation is needed. MEDIASTINUM AND HILAR STRUCTURES: No masses or contour abnormalities. HEART AND VASCULAR STRUCTURES: Heart is slightly enlarged. No failure. BONES: No acute findings. HARDWARE: None in the chest. OTHER: No other significant finding. IMPRESSION: No acute findings in the chest. There does appear to be subcutaneous emphysema on the r ight. Clinical correlation is needed. TECHNICAL DOCUMENTATION: JOB ID: [id number] [employer]- All Rights Reserved Reading location - IP/workstation name: [email or web address]
[2019-05-13] MEDS ORDERED: INSULIN DETEMIR 25 UNIT SQ SCH (22:00)
[2019-05-13] MEDS ORDERED: INSULIN GLARGINE,HUM.REC.ANLOG 1,000 UNIT/10 ML VIAL SUBCUT SCH (22:00)
--- NOTE | 2019-05-14 06:44 | PDOC PROGRESS REPORT ---
Subjective Progress Note for:: 05/14/19 Reason For Visit: M75.121 COMPLETE ROTATR-CUFF TEAR/RUPTR OF Julius BECKER 69-year-old black female now postop day 2 status post right rotator cuff repair. Prolonged hospitalization because of questions of diabetes insipidus as well as what appears to be a poorly controlled diabetes Physical Exam Vital Signs: Temp Pulse Resp BP Pulse Ox 36.6 C 55 L 17 151/64 H 100 05/13/19 23:53 05/13/19 23:53 05/13/19 23:53 05/13/19 23:53 05/13/19 23:53 Intake & Output 05/12/19 05/13/19 05/14/19 06:59 06:59 06:59 Intake Total 36294 1374 Output Total 54887 1135 Balance 559 239 Weight 105 kg 103.9 kg 104.1 kg General appearance: PRESENT: no acute distress, mild distress, obese Head exam: PRESENT: normocephalic Respiratory exam: PRESENT: unlabored Cardiovascular exam: PRESENT: RRR Vascular exam: PRESENT: normal capillary refill GI/Abdominal exam: PRESENT: soft Rectal exam: PRESENT: deferred Results Laboratory Results: 05/13/19 16:28 05/12/19 16:37 05/13/19 05/13/19 16:28 17:58 WBC 16.4 H RBC 5.14 Hgb 12.9 Hct 39.3 MCV 76 L MCH 25.1 L MCHC 32.8 RDW 15.3 H Plt Count 231 Seg Neutrophils % 78.6 H Urine Color YELLOW Urine Appearance CLEAR Urine pH 5.0 Ur Specific [place] 1.015 Urine Protein NEGATIVE Urine Glucose (UA) >=500 H Urine Ketones NEGATIVE Urine Blood MODERATE H Urine Nitrite NEGATIVE Ur Leukocyte Esterase TRACE H Urine WBC (Auto) 2 Urine RBC (Auto) 11 Impressions: Chest X-Ray 05/13/19 00:00 IMPRESSION: No acute findings in the chest. There does appear to be subcutaneous emphysema on the right. Clinical correlation is needed. Status: Imported from PACS Assessment & Plan - Diagnosis (1) Rotator cuff tear Is this a current diagnosis for this admission?: Yes Plan: Patient status post surgical repair (2) Type 2 diabetes mellitus with diabetic polyneuropathy Qualifiers: Diabetes mellitus usp insulin use: with assistant terminal manager use Qualified Code(s): E11.42 - Type 2 diabetes mellitus with diabetic polyneuropathy; Z79.4 - roasterman (current) use of insulin Is this a current diagnosis for this admission?: Yes Plan: Patient under medical management - Time Time Spent with patient: 15-24 minutes Anticipated discharge: Home Within: Other
[2019-05-14] MEDS: INSULIN LISPRO 100 UNIT/ML 3 ML VIAL SUBCUT SCH ×3 (08:45→16:50)
[2019-05-14] MEDS: MONTELUKAST SODIUM 10 MG TABLET PO SCH (08:46)
[2019-05-14] MEDS: OXYCODONE-ACETAMINOPHEN 5-325 MG TABLET PO PRN ×2 (08:47→16:53)
[2019-05-14] MEDS: GLIPIZIDE 10 MG TABLET PO SCH ×2 (08:59→16:59)
[2019-05-14] MEDS: METOPROLOL SUCCINATE 50 MG TAB.SR.24H PO SCH (11:28)
[2019-05-14] MEDS: HYDROCHLOROTHIAZIDE 25 MG TABLET PO SCH (11:33)
[2019-05-14] MEDS: CLONIDINE HCL 0.1 MG TABLET PO SCH (11:33)
[2019-05-14] MEDS: AMLODIPINE BESYLATE 10 MG TABLET PO SCH (11:33)
[2019-05-14] MEDS: VALSARTAN 160 MG TABLET PO SCH (11:36)
[2019-05-14 13:46] VITALS: BP 152/51
[2019-05-14] MEDS ORDERED: ONDANSETRON HCL INJ/PF 4 MG/2 ML SDV IV PRN (14:30)
[2019-05-14] MEDS: METFORMIN HCL 500 MG TABLET PO SCH (16:49)
--- NOTE | 2019-05-15 13:40 | PDOC DISCHARGE SUMMARY ---
Impression - Admit/DC Date/PCP Admission Date/Primary Care Provider: 05/12/19 12:45 ADDIS ACUNA MD Discharge Date: 05/14/19 - Additional Information Resuscitation Status: Full Code Discharge Diet: As Tolerated Discharge Activity: No Lifting Over 10 Pounds, No Lifting/Push/Pulling Referrals: ELIJAH ANGEL DO [ACTIVE STAFF] - 05/25/19 1:00 pm Home Medications: Glipizide [Glucotrol] 10 mg PO BID 01/06/19 Insulin Aspart [Novolog Flexpen] 5 unit SQ MEALS 01/06/19 Insulin Detemir [Levemir] 25 unit SQ QHS 01/06/19 Metformin HCl [Glucophage] 500 mg PO WSUPPER 01/06/19 Metoprolol Succinate [Toprol XL 100 mg Tablet] 100 mg PO Q12 01/06/19 Montelukast Sodium [Singulair] 10 mg PO QAM 01/26/19 Amlodipine/Valsartan/Hcthiazid [Pzagf-Ndcho-Hugv 10-320-25 mg] 1 tab PO QAM 02/03/19 Clonidine HCl [Catapres 0.1 mg Tablet] 0.1 mg PO BID 05/05/19 History of Present Illiness History of Present Illness: GAB APARICIO is a 69 year old female with longstanding history of right shoulder discomfort. Patient MRI consistent with rotator cuff tear. We attempted conservative measures without resolution of patient's symptoms at that point decision was made to proceed with operative intervention. Patient previously attempted operative treatment but given cardiac issues intraoperatively surgical case was canceled patient preoperatively obtained cardiac clearance and was ready to proceed with operative treatment. Hospital Course Hospital Course: Patient underwent rotator cuff repair on 05/12/19 patient was then taken back to the operating in a stable condition however noted in the PACU patient was beginning to have polyuria. Anesthesia was concerned of possible diabetes insipidus and thus patient was admitted for observation. On postop day #1 patient's polyuria notably improved and was seen by her PCP who felt she was in a stable condition. However patient was concerned about returning home given her limited mobilization and performing activities of daily living. Patient received physical therapy had significant improvement. Patient's pain improved throughout the hospital course and thus on 05/14/2019 patient was stable for discharge to home. Physical Exam Vital Signs: Temp Pulse Resp BP Pulse Ox 98.1 F 52 L 16 152/51 H 100 05/14/19 17:40 05/14/19 17:40 05/14/19 17:40 05/14/19 17:40 05/14/19 17:40 Intake & Output 05/14/19 05/15/19 05/16/19 06:59 06:59 06:59 Intake Total 1374 460 Output Total 1135 Balance 239 460 Weight 104.1 kg General appearance: PRESENT: no acute distress, well-developed, well-nourished Head exam: PRESENT: atraumatic, normocephalic Eye exam: PRESENT: conjunctiva pink, EOMI, PERRLA. ABSENT: scleral icterus Ear exam: PRESENT: normal external ear exam Mouth exam: PRESENT: moist, tongue midline Neck exam: ABSENT: carotid bruit, JVD, lymphadenopathy, thyromegaly Respiratory exam: PRESENT: clear to auscultation jessica. ABSENT: rales, rhonchi, wheezes Cardiovascular exam: PRESENT: RRR. ABSENT: diastolic murmur, rubs, systolic murmur Pulses: PRESENT: normal dorsalis pedis pul Vascular exam: PRESENT: normal capillary refill GI/Abdominal exam: PRESENT: normal bowel sounds, soft. ABSENT: distended, guarding, mass, organolmegaly, rebound, tenderness Rectal exam: PRESENT: deferred Extremities exam: PRESENT: full ROM. ABSENT: calf tenderness, clubbing, pedal edema Musculoskeletal exam: PRESENT: other - Right shoulder dressing clean/dry/intact no erythema or drainage. Intact elbow flexion/extension. Neurological exam: PRESENT: alert, awake, oriented to person, oriented to place, oriented to time, oriented to situation, CN II-XII grossly intact. ABSENT: motor sensory deficit Psychiatric exam: PRESENT: appropriate affect, normal mood. ABSENT: homicidal ideation, suicidal ideation Skin exam: PRESENT: dry, intact, warm. ABSENT: cyanosis, rash Results Laboratory Results: WBC 16.4 10^3/uL (4.0-10.5) H 05/13/19 16:28 RBC 5.14 10^6/uL (3.72-5.28) 05/13/19 16:28 Hgb 12.9 g/dL (12.0-15.5) 05/13/19 16:28 Hct 39.3 % (36.0-47.0) 05/13/19 16:28 MCV 76 fl (80-97) L 05/13/19 16:28 MCH 25.1 pg (27.0-33.4) L 05/13/19 16:28 MCHC 32.8 g/dL (32.0-36.0) 05/13/19 16:28 RDW 15.3 % (11.5-14.0) H 05/13/19 16:28 Plt Count 231 10^3/uL (150-450) 05/13/19 16:28 Lymph % (Auto) 10.1 % (13-45) L 05/13/19 16:28 [place] % (Auto) 10.6 % (3-13) 05/13/19 16:28 Eos % (Auto) 0.1 % (0-6) 05/13/19 16:28 Baso % (Auto) 0.6 % (0-2) 05/13/19 16:28 Absolute Neuts (auto) 12.9 10^3/uL (1.7-8.2) H 05/13/19 16:28 Absolute Lymphs (auto) 1.7 10^3/uL (0.5-4.7) 05/13/19 16:28 Absolute Monos (auto) 1.7 10^3/uL (0.1-1.4) H 05/13/19 16:28 Absolute Eos (auto) 0.0 10^3/uL (0.0-0.6) 05/13/19 16:28 Absolute Basos (auto) 0.1 10^3/uL (0.0-0.2) 05/13/19 16:28 Seg Neutrophils % 78.6 % (42-78) H 05/13/19 16:28 Sodium 141.2 mmol/L (137-145) 05/12/19 16:37 Potassium 4.3 mmol/L (3.6-5.0) 05/12/19 16:37 Chloride 101 mmol/L (98-107) 05/12/19 16:37 Carbon Dioxide 27 mmol/L (22-30) 05/12/19 16:37 Anion Gap 13 (5-19) 05/12/19 16:37 BUN 12 mg/dL (7-20) 05/12/19 16:37 Creatinine 0.51 mg/dL (0.52-1.25) L 05/12/19 16:37 Est GFR ( Amer) > 60 (>60) 05/12/19 16:37 Est GFR (MDRD) Non-Af > 60 (>60) 05/12/19 16:37 Glucose 305 mg/dL (75-110) H 05/12/19 16:37 POC Glucose 273 mg/dL (70-110) H 05/14/19 17:21 Hemoglobin A1c % 10.1 % (4.7-6.0) H 05/13/19 16:28 Serum Osmolality 298 mOsm/kg (275-301) 05/12/19 07:28 Calcium 9.4 mg/dL (8.4-10.2) 05/12/19 16:37 Phosphorus 3.9 mg/dL (2.5-4.5) 05/12/19 07:28 Magnesium 1.9 mg/dL (1.6-2.3) 05/12/19 07:28 Urine Color YELLOW 05/13/19 17:58 Urine Appearance CLEAR 05/13/19 17:58 Urine pH 5.0 (5.0-9.0) 05/13/19 17:58 Ur Specific [place] 1.015 05/13/19 17:58 Urine Protein NEGATIVE mg/dL (NEGATIVE) 05/13/19 17:58 Urine Glucose (UA) >=500 mg/dL (NEGATIVE) H 05/13/19 17:58 Urine Ketones NEGATIVE mg/dL (NEGATIVE) 05/13/19 17:58 Urine Blood MODERATE (NEGATIVE) H 05/13/19 17:58 Urine Nitrite NEGATIVE (NEGATIVE) 05/13/19 17:58 Urine Bilirubin NEGATIVE (NEGATIVE) 05/13/19 17:58 Urine Urobilinogen NEGATIVE mg/dL (<2.0) 05/13/19 17:58 Ur Leukocyte Esterase TRACE (NEGATIVE) H 05/13/19 17:58 Urine WBC (Auto) 2 /HPF 05/13/19 17:58 Urine RBC (Auto) 11 /HPF 05/13/19 17:58 Urine Bacteria (Auto) TRACE /HPF 05/13/19 17:58 Squamous Epi Cells Auto <1 /HPF 05/12/19 08:30 Urine Mucus (Auto) RARE /LPF 05/13/19 17:58 Urine Osmolality 411 mOsm/kg (300-900) 05/12/19 12:03 Urine Ascorbic Acid NEGATIVE (NEGATIVE) 05/13/19 17:58 Impressions: Chest X-Ray 05/05/19 00:00 IMPRESSION: Stable enlarged cardiac silhouette without other evidence of acute intrathoracic process. Chest X-Ray 05/13/19 00:00 IMPRESSION: No acute findings in the chest. There does appear to be subcutaneous emphysema on the right. Clinical correlation is needed. Plan Plan of Treatment: Patient discharged home with home health on 05/14/2019. Will continue pendulum exercises, elbow wrist and hand range of motion. Patient follow in the office with me as scheduled. We set up for physical therapy 6 weeks postoperatively. Patient was read discharge instructions understood discharge instructions and stable for discharge. Stroke Is this a Stroke Patient?: No Acute Heart Failure - Is this a Heart Failure Patient?: No
== END 2019-05-14 19:00 | disposition home or self-care (01) ==
LOC: OROUT 06:06 → 4S 12:45
PROVIDERS: ADMIT Orthopaedic Surgery; ATTEND Orthopaedic Surgery
DX: M75.121 Complete rotator cuff tear or rupture of right shoulder, not specified as traumatic (principal); M75.41 Impingement syndrome of right shoulder; M13.811 Other specified arthritis, right shoulder; M75.52 Bursitis of left shoulder; S43.431A Superior glenoid labrum lesion of right shoulder, initial encounter; X58.XXXA Exposure to other specified factors, initial encounter; R35.8 Other polyuria; E11.42 Type 2 diabetes mellitus with diabetic polyneuropathy; I25.10 Atherosclerotic heart disease of native coronary artery without angina pectoris; J45.909 Unspecified asthma, uncomplicated; I10 Essential (primary) hypertension; E66.9 Obesity, unspecified; G47.30 Sleep apnea, unspecified; Z79.899 Other long term (current) drug therapy; Z79.4 Long term (current) use of insulin; Z87.891 Personal history of nicotine dependence; Z86.73 Personal history of transient ischemic attack (TIA), and cerebral infarction without residual deficits; Z01.812 Encounter for preprocedural laboratory examination; Z01.811 Encounter for preprocedural respiratory examination
CPT/HCPCS: 29827; 29828; 29826; 20610; 93005; 36415 ×2; 87086; 82962 ×2; 82947; 83735; 83930; 84100; 84132; 83935; 85025 ×2; 80048 ×2; 81001; 83036; 71046; 93010; 97530; 97116; 97163; 97535; 97167; 01630; G0378 ×3; C1713; J2250; A9270 ×22; J0690; J3490 ×2; J1100; J0171; J3010; J1170 ×2; J0702; J0330; J2405; J7060; J2704; J0131; J1815; J2795

== ENCOUNTER → 2019-06-22 | Outpatient (CLI) | payer MEDICARE, OTHER ==
--- NOTE | 2019-06-22 12:26 | RADIOLOGY REPORT (SQ) ---
EXAM DESCRIPTION: ANKLE RIGHT AP/LATERAL COMPLETED DATE/TIME: 06/22/2019 12:10 pm REASON FOR STUDY: PAIN IN RT/LEFT ANKLE AND JOINTS OF RT/LEFT FOOT M25.571 PAIN IN RIGHT ANKLE AND JOINTS OF RIGHT FOOT M25.572 PAIN IN LEFT ANKLE AND JOINTS OF LEFT FOOT COMPARISON: None. NUMBER OF VIEWS: Two views. TECHNIQUE: AP and lateral without weight bearing radiographic images acquired of the right ankle. LIMITATIONS: None. FINDINGS: MINERALIZATION: Normal. BONES: No acute fracture or dislocation. No worrisome bone lesions. No significant osteophytes. JOINTS: No effusions. SOFT TISSUES: No soft tissue swelling. No foreign body. OTHER: No other significant finding. IMPRESSION: NO SIGNIFICANT FINDING IN THE RIGHT ANKLE. NO EXPLANATION FOR PAIN. TECHNICAL DOCUMENTATION: JOB ID: [id number] [employer]- All Rights Reserved Reading location - IP/workstation name: [email or web address]
--- NOTE | 2019-06-22 12:27 | RADIOLOGY REPORT (SQ) ---
EXAM DESCRIPTION: ANKLE LEFT AP/LATERAL COMPLETED DATE/TIME: 06/22/2019 12:10 pm REASON FOR STUDY: PAIN IN RT/LEFT ANKLE AND JOINTS OF RT/LEFT FOOT M25.571 PAIN IN RIGHT ANKLE AND JOINTS OF RIGHT FOOT M25.572 PAIN IN LEFT ANKLE AND JOINTS OF LEFT FOOT COMPARISON: None. NUMBER OF VIEWS: Two views. TECHNIQUE: AP and lateral without weight bearing radiographic images acquired of the left ankle. LIMITATIONS: None. FINDINGS: MINERALIZATION: Normal. BONES: No acute fracture or dislocation. No worrisome bone lesions. No significant osteophytes. JOINTS: No effusions. SOFT TISSUES: No soft tissue swelling. No foreign body. OTHER: No other significant finding. IMPRESSION: NO SIGNIFICANT FINDING IN THE LEFT ANKLE. NO EXPLANATION FOR PAIN. TECHNICAL DOCUMENTATION: JOB ID: [id number] [employer]- All Rights Reserved Reading location - IP/workstation name: [email or web address]
== END ==
LOC: OD 11:42
PROVIDERS: ATTEND Internal Medicine
DX: M25.571 Pain in right ankle and joints of right foot (principal); M25.572 Pain in left ankle and joints of left foot

== ENCOUNTER 2019-11-18 17:57 | Emergency (ER) | payer MEDICARE, OTHER ==
[2019-11-18 18:08] VITALS: BP 189/58
[2019-11-18] MEDS ORDERED: OXYCODONE-ACETAMINOPHEN 5-325 MG TABLET PO ONE (18:58)
--- NOTE | 2019-11-18 19:04 | ER Document Report ---
HPI - HPI Time Seen by Provider: 11/18/19 18:53 Pain Level: 5 Notes: CHIEF COMPLAINT: Right knee injury today HPI: 69-year-old female presenting to the emergency department complaining of right knee injury today. Patient states that she has some swelling and pain to the right knee, saw Dr. Angel orthopedics yesterday about this. Patient was told she had gouty arthritis and was given a cortisone shot in the knee. States she was not told to be nonweightbearing and when she was walking this afternoon felt a sudden "pop" in the anterior right knee with sudden severe pain and inability to significantly weight-bear. Patient denies hip or ankle discomfort or injury. ROS: See HPI - all other systems were reviewed and are otherwise negative Constitutional: no fever Integumentary: no rash Allergy: no hives Musculoskeletal: + extremity pain or swelling Neurological: no numbness/tingling MEDICATIONS: I agree with the patient medications as charted by the RN. ALLERGIES: I agree with the allergies as charted by the RN. PAST MEDICAL HISTORY/PAST SURGICAL HISTORY: Reviewed and agree as charted by RN. SOCIAL HISTORY: Reviewed and agree as charted by RN. FAMILY HISTORY: No significant familial comorbid conditions directly related to patient complaint EXAM: Reviewed vital signs as charted by RN. CONSTITUTIONAL: Alert and oriented and responds appropriately to questions. Well-appearing; well-nourished HEAD: Normocephalic; atraumatic EYES: Conjunctivae clear, sclerae non-icteric ENT: normal nose; no rhinorrhea; moist mucous membranes NECK: Supple without meningismus CARD: Capillary refill less than 3 seconds; symmetric distal pulses RESP: Normal chest excursion without splinting or tachypnea ABD/GI: non-distended. BACK: The back appears normal EXT: Moderate edema over the anterior right knee with some effusion. Tenderness to palpation over the anterior right knee no ballottement of the patella. Limited extension secondary to pain. Limited varus and valgus rotation secondary to pain. Popliteal, dorsalis pedis and posterior tibial pulses are present in the right lower extremity. No hip or ankle discomfort on palpation or limited range of motion SKIN: Normal color for age and race; warm; dry; good turgor; no acute lesions n oted NEURO: Moves all extremities equally; Motor and sensory function intact PSYCH: The patient's mood and manner are appropriate. Grooming and personal hygiene are appropriate. MDM: 69-year-old female with injury to the right knee. Received a cortisone shot yesterday felt a pop today while walking. Moderate effusion and edema over the anterior knee suspect a meniscal tear. Will obtain an x-ray for bony injury if no bony injury will immobilize and limited weightbearing with crutches, pain medicine, follow-up with orthopedics tomorrow. We did discuss balance issues on pain medication and with crutches patient states she would prefer crutches if possible - REPRODUCTIVE Reproductive: DENIES: : - MUSCULOSKELETAL Musculoskeletal: REPORTS: Extremity pain Past Medical History - Social History Smoking Status: Never Smoker Frequency of alcohol use: None Drug Abuse: None Family History: Reviewed & Not Pertinent Patient has homicidal ideation: No - Past Medical History Cardiac Medical History: Reports: Hx Coronary Artery Disease - HIGH CHOLESTEROL, Hx Hypercholesterolemia, Hx Hypertension Denies: Hx Heart Attack Pulmonary Medical History: Reports: Hx Asthma - inhalers, Hx Pneumonia Denies: Hx Bronchitis, Hx COPD Neurological Medical History: Reports: Hx Cerebrovascular Accident - 2000 LEFT SIDED WEAKNESS NO CANE. Denies: Hx Seizures Endocrine Medical History: Reports: Hx Diabetes Mellitus Type 2 Renal/ Medical History: Denies: Hx Peritoneal Dialysis GI Medical History: Reports: Hx Gastroesophageal Reflux Disease. Denies: Hx Hepatitis, Hx Hiatal Hernia, Hx Ulcer Musculoskeletal Medical History: Reports Hx Arthritis Psychiatric Medical History: Reports: Hx Anxiety, Hx Depression Infectious Medical History: Denies: Hx Hepatitis Past Surgical History: Reports: Hx Hysterectomy, Hx Orthopedic Surgery - R wrist. Denies: Hx Mastectomy, Hx Open Heart Surgery, Hx Pacemaker - Immunizations Hx Diphtheria, Pertussis, Tetanus Vaccination: No Hx Pneumococcal Vaccination: 06/10/17 Vertical Provider Document - INFECTION CONTROL TRAVEL OUTSIDE OF THE [place] IN LAST 30 DAYS: No Course - Re-evaluation Re-evalutation: 11/18/19 19:33 Knee x-ray on my review does not show evidence of a definitive fracture. More likely a soft tissue meniscal or ligamentous injury. Will place in a knee immobilizer, crutches limited weightbearing pain management back to the orthopedic clinic tomorrow for reevaluation - Vital Signs Vital signs: Temp Pulse Resp BP Pulse Ox 97.8 F 54 L 24 H 189/58 H 97 11/18/19 18:49 11/18/19 18:05 11/18/19 18:05 11/18/19 18:05 11/18/19 18:05 Discharge - Discharge Clinical Impression: Right knee injury Qualifiers: Encounter type: initial encounter Qualified Code(s): S89.91XA - Unspecified injury of right lower leg, initial encounter Condition: Stable Disposition: HOME, SELF-CARE Additional Instructions: 1. ice and elevate the lower extremity as much as possible 2. utilize the crutches as instructed, weight bearing as tolerated with splint on 3. medications for pain as prescribed, no driving on narcotics 4. follow up with orthopedics for further evaluation and treatment, call for appt. 5. do not sleep in the knee immobilizer, take off at night or rest. Prescriptions: Oxycodone HCl/Acetaminophen [Percocet 5-325 mg Tablet] 1 tab PO Q6H PRN #15 tab PRN Reason: Referrals: ADDIS ACUNA MD [Primary Care Provider] - Follow up as needed ELIJAH ANGEL DO [ACTIVE STAFF] - Follow up as needed
--- NOTE | 2019-11-18 20:00 | RADIOLOGY REPORT (SQ) ---
EXAM DESCRIPTION: KNEE RIGHT 4 VIEWS IMAGES COMPLETED DATE/TIME: 11/18/2019 7:51 pm REASON FOR STUDY: injury COMPARISON: None. NUMBER OF VIEWS: Four views. TECHNIQUE: AP, lateral, and both oblique radiographic images acquired of the right knee. LIMITATIONS: None. FINDINGS: MINERALIZATION: Normal. BONES: No acute fracture or dislocation. No worrisome bone lesions. JOINT: No effusion. SOFT TISSUES: No soft tissue swelling. No radio-opaque foreign body. OTHER: No other significant finding. IMPRESSION: NEGATIVE STUDY OF THE RIGHT KNEE. NO RADIOGRAPHIC EVIDENCE OF ACUTE INJURY. TECHNICAL DOCUMENTATION: JOB ID: [id number] 2010 [employer]- All Rights Reserved Reading location - IP/workstation name: [email or web address]
== END 2019-11-19 08:29 | disposition home or self-care (01) ==
LOC: ER 17:57
DX: S89.91XA Unspecified injury of right lower leg, initial encounter (principal); M79.89 Other specified soft tissue disorders; M25.561 Pain in right knee; I25.10 Atherosclerotic heart disease of native coronary artery without angina pectoris; I10 Essential (primary) hypertension; J45.909 Unspecified asthma, uncomplicated; E11.9 Type 2 diabetes mellitus without complications; X58.XXXA Exposure to other specified factors, initial encounter
CPT/HCPCS: 99283; 73564; A9270

== ENCOUNTER 2020-01-04 09:13 | Day surgery (SDC) | payer MEDICARE, OTHER ==
[2020-01-01 12:44] LABS: HEMATOCRIT 41.5 % (36.0-47.0); HEMOGLOBIN 13.8 g/dL (12.0-15.5); MEAN CORPUSCULAR HEMOGLOBIN 25.4 pg (27.0-33.4); MEAN CORPUSCULAR HGB CONC 33.4 g/dL (32.0-36.0); MEAN CORPUSCULAR VOLUME 76 fl (80-97); PLATELET COUNT 229 10^3/uL (150-450); RED BLOOD COUNT 5.44 10^6/uL (3.72-5.28); RED CELL DISTRIBUTION WIDTH 15.4 % (11.5-14.0); WHITE BLOOD COUNT 8.7 10^3/uL (4.0-10.5)
[2020-01-01 12:51] LABS: APPEARANCE,URINE CLEAR; BILIRUBIN,URINE NEGATIVE (NEGATIVE); COLOR,URINE YELLOW; GLUCOSE, URINE NEGATIVE (NEGATIVE); KETONES,URINE NEGATIVE (NEGATIVE); LEUKOCYTE ESTERASE,URINE NEGATIVE (NEGATIVE); NITRITE,URINE NEGATIVE (NEGATIVE); PROTEIN,URINE NEGATIVE (NEGATIVE); URINE SPECIFIC GRAVITY 1.011; UROBILINOGEN,URINE NEGATIVE mg/dL (<2.0)
[2020-01-01 13:10] LABS: ANION GAP 9 (5-19); BLOOD UREA NITROGEN 14 mg/dL (7-20); CARBON DIOXIDE 30 mmol/L (22-30); CHLORIDE 101 mmol/L (98-107); GLUCOSE 103 mg/dL (75-110)
[2020-01-01 13:18] LABS: POTASSIUM 3.8 mmol/L (3.6-5.0)
--- NOTE | 2020-01-01 13:45 | RADIOLOGY REPORT (SQ) ---
EXAM DESCRIPTION: CHEST PA/LATERAL IMAGES COMPLETED DATE/TIME: 01/01/2020 12:57 pm REASON FOR STUDY: PRE OP COMPARISON: 05/13/2019 EXAM PARAMETERS: NUMBER OF VIEWS: two views TECHNIQUE: Digital Frontal and Lateral radiographic views of the chest acquired. RADIATION DOSE: NA LIMITATIONS: none FINDINGS: LUNGS AND PLEURA: No opacities, masses or pneumothorax. No pleural effusion. MEDIASTINUM AND HILAR STRUCTURES: No masses or contour abnormalities. HEART AND VASCULAR STRUCTURES: Heart normal size. No evidence for failure. BONES: No acute findings. HARDWARE: None in the chest. OTHER: No other significant finding. IMPRESSION: NO SIGNIFICANT RADIOGRAPHIC FINDING IN THE CHEST. TECHNICAL DOCUMENTATION: JOB ID: [id number] 2010 [employer]- All Rights Reserved Reading location - IP/workstation name: [email or web address]
--- NOTE | 2020-01-02 10:26 | EKG REPORT ---
SEVERITY:- ABNORMAL ECG - SINUS BRADYCARDIA PROBABLE LEFT ATRIAL ABNORMALITY LEFT VENTRICULAR HYPERTROPHY ABNORMAL T, CONSIDER ISCHEMIA, LATERAL LEADS : Confirmed by: Doyle Omer 02-Jan-2020 10:25:49
[~2020-01-04 09:13] MED LIST changes: +CEFAZOLIN 2 GM/D5W RTU 2 GM/50 ML RTUPB IV PRN; -CEFAZOLIN SODIUM 2 GM in DEXTROSE 5%-WATER 100 ML IV PRN; +FENTANYL CITRATE INJ/PF 100 MCG/2 ML AMPUL ONE; +MIDAZOLAM 2 MG/2 ML INJ ONE; +PROPOFOL INJ 200 MG/20 ML VIAL IV ONE; -ROCURONIUM BROMIDE INJ 50 MG/5 ML VIAL IV ONE; -SUCCINYLCHOLINE CHLORIDE INJ 200 MG/10 ML VIAL ONE
[2020-01-04] MEDS ORDERED: CEFAZOLIN 2 GM/D5W RTU 2 GM/50 ML RTUPB IV ONE (10:36)
[2020-01-04] MEDS ORDERED: BUPIVACAINE HCL 0.5 % INJ/PF 30 ML SDV ONE (13:14)
[2020-01-04] MEDS ORDERED: LIDOCAINE 1%/EPINEPHRINE INJ 20 ML VIAL ONE (13:14)
[2020-01-04] MEDS ORDERED: DIPHENHYDRAMINE HCL 50 MG/ML VIAL IV PRN (13:44)
[2020-01-04] MEDS ORDERED: FENTANYL CITRATE INJ/PF 100 MCG/2 ML AMPUL IV PRN ×3 (13:44)
[2020-01-04] MEDS ORDERED: PROMETHAZINE HCL INJ 25 MG/1 ML VIAL IV PRN ×2 (13:44)
[2020-01-04] MEDS ORDERED: ONDANSETRON HCL INJ/PF 4 MG/2 ML SDV IV PRN (13:44)
[2020-01-04] MEDS ORDERED: MEPERIDINE HCL/PF INJ 25 MG/1 ML DISP.SYRIN IV PRN (13:44)
[2020-01-04] MEDS ORDERED: MORPHINE SULFATE 10 MG/ML INJ IV PRN (13:44)
--- NOTE | 2020-01-04 13:58 | Discharge Summary ---
Discharge Summary (SDC) - Discharge Final Diagnosis: Right medial meniscal tear Date of Surgery: 01/04/20 Discharge Date: 01/04/20 Condition: Good Treatment or Instructions: Weightbearing as tolerated ambulation. You can remove the compressive wrap on Saturday. Underneath this is an OpSite dressing. You can leave that and to return to the office. Once the compressive wrap has been removed you may shower but please do not immerse it in a tub or pool. Prescriptions: Oxycodone HCl/Acetaminophen [Percocet 5-325 mg Tablet] 1 tab PO Q6 PRN #24 tab PRN Reason: Referrals: ADDIS ACUNA MD [Primary Care Provider] - Respiratory Treatments at Home: Deep Breathing/Coughing Discharge Activity: Activity As Tolerated, No tub bath Home Care Assistance: None Needed, Provided by Family Report the Following to Your Physician Immediately: Shortness of Breath, Fever over 101 Degrees, Drainage-Foul Smelling
--- NOTE | 2020-01-04 14:00 | Operative Report ---
Operative Report DATE OF SURGERY: 01/04/20 PREOPERATIVE DIAGNOSIS: Right medial meniscal tear POSTOPERATIVE DIAGNOSIS: Right medial meniscal tear. 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 Intact ACL. Intact lateral meniscus. Grade I chondromalacia of the lateral compartment. Grade II-III chondromalacia the patellofemoral compartment OPERATION: Arthroscopic partial right medial meniscectomy SURGEON: FRANCOISE JAIME ANESTHESIA: LMAC ESTIMATED BLOOD LOSS: Minimal PROCEDURE: With the patient supine operative table the right lower extremities prepped and draped in a sterile fashion. The knee is insufflated with a combination Marcaine, Xylocaine, and epinephrine. Subsequent medial lateral infrapatellar portals are created with introduction the arthroscope and debridements mentation. Joint is examined systematic fashion findings as above. Using combination mechanical rongeurs, mechanical shaver, electric frequency ablation probe a partial medial meniscectomy performed from proximal and 4:00 to 12:00 in the face of the dial. Joint is again again examined in a systematic fashion with no new findings. Instrumentation was removed portals reapproximated up and nylon. Sterile compressive dressing is applied and patient returned to PACU in satisfactory condition.
[2020-01-04] MEDS ORDERED: FENTANYL CITRATE INJ/PF 100 MCG/2 ML AMPUL ONE (14:10)
[2020-01-04] MEDS ORDERED: PROPOFOL INJ 200 MG/20 ML VIAL IV ONE (14:17)
[2020-01-04] MEDS ORDERED: OXYCODONE-ACETAMINOPHEN 5-325 MG TABLET ONE (15:13)
[2020-01-04] MEDS ORDERED: OXYCODONE-ACETAMINOPHEN 5-325 MG TABLET PO ONE (15:30)
[2020-01-04 16:54] VITALS: BP 214/84
== END 2020-01-04 16:35 | disposition home or self-care (01) ==
LOC: OROUT 09:13
PROVIDERS: ATTEND Orthopaedic Surgery
DX: S83.241A Other tear of medial meniscus, current injury, right knee, initial encounter (principal); X58.XXXA Exposure to other specified factors, initial encounter; M25.561 Pain in right knee; Z03.818 Encounter for observation for suspected exposure to other biological agents ruled out; E66.9 Obesity, unspecified; E78.5 Hyperlipidemia, unspecified; I10 Essential (primary) hypertension; E11.9 Type 2 diabetes mellitus without complications; K21.9 Gastro-esophageal reflux disease without esophagitis; M79.7 Fibromyalgia; Z79.899 Other long term (current) drug therapy; Z87.891 Personal history of nicotine dependence; Z79.84 Long term (current) use of oral hypoglycemic drugs; Z86.73 Personal history of transient ischemic attack (TIA), and cerebral infarction without residual deficits
CPT/HCPCS: 93005; 36415; 82962; 85027; 80048; 81001; 83036; 71046; 93010; 29881; U0003; J2250; J3490 ×2; J3010; A9270; J2704; J0690; C9803; 87635

== ENCOUNTER → 2020-03-23 | Outpatient (CLI) | payer MEDICARE, OTHER ==
--- NOTE | 2020-03-23 14:36 | WOMENS IMAGING REPORT ---
EXAM DESCRIPTION: 3D SCREENING MAMMO BILAT IMAGES COMPLETED DATE/TIME: 03/23/2020 2:02 pm REASON FOR STUDY: Z12.31 ENCNTR SCREEN MAMMOGRAM FOR MALIGNANT NEOPLASM OF BREAST Z12.31 ENCNTR SCR EEN MAMMOGRAM FOR MALIGNANT NEOPLASM OF DANIELLE COMPARISON: 03/13/2019 and 08/28/2016. EXAM PARAMETERS: Standard craniocaudal and mediolateral oblique views of each breast recorded using digital acquisition and breast tomosynthesis. Read with the assistance of CAD. .[facility], [facility] - [employer] Version 9.2 LIMITATIONS: None. FINDINGS: Findings present which are benign by mammographic criteria. No suspicious masses, calcific ations or architectural distortion. Pertinent benign findings: Circumscribed masses. Surgical changes in the right breast. Benign mammographic findings may include one or more of the following: Smooth masses, popcorn/rim/coa rse calcifications, asymmetries, post-procedure changes, and lesions with long-standing stability. IMPRESSION: BENIGN MAMMOGRAPHIC FINDINGS. BIRADS 2 BREAST DENSITY: b. There are scattered areas of fibroglandular density. BIRAD: ASSESSMENT: 2 BENIGN FINDING(S) RECOMMENDATION: ROUTINE SCREENING COMMENT: The patient has been notified of the results by letter per MQSA requirements. Additional no tification policies are in place for contacting patient with suspicious or incomplete findings. Quality ID #225: The [employer] recommends an annual screening mammogram for women aged 40 years or over. This facility utilizes a reminder system to ensure that all patients receive reminder letters, and/or direct phone calls for appointments. This includes reminders for routine scr eening mammograms, diagnostic mammograms, or other Breast Imaging Interventions when appropriate. Th is patient will be placed in the appropriate reminder system. TECHNICAL DOCUMENTATION: FINDING NUMBER: (1) ASSESSMENT: (1) JOB ID: [id number] 2010 [employer]- All Rights Reserved Reading location - IP/workstation name: [email or web address]
== END ==
LOC: WI 13:42
PROVIDERS: ATTEND Internal Medicine
DX: Z12.31 Encounter for screening mammogram for malignant neoplasm of breast (principal)
CPT/HCPCS: 77063; 77067

== ENCOUNTER → 2020-05-13 | Outpatient (CLI) | payer MEDICARE, OTHER ==
--- NOTE | 2020-05-13 15:38 | RADIOLOGY REPORT (SQ) ---
EXAM DESCRIPTION: CT SOFT TISSUE NECK WITHOUT IMAGES COMPLETED DATE/TIME: 05/13/2020 1:06 pm REASON FOR STUDY: R22.1 LOCALIZED SWELLING, MASS AND LUMP, NECK R22.1 LOCALIZED SWELLING, MASS AND LUMP, NECK COMPARISON: None. TECHNIQUE: Noncontrast scanning from skull base through lung apices with review of bone, soft tissue and lung windows. Reconstructed coronal and sagittal MPR images reviewed. All images stored on PAC S. All CT scanners at this facility use dose modulation, iterative reconstruction, and/or weight based d osing when appropriate to reduce radiation dose to as low as reasonably achievable (ALARA). [facility]: Dose Right [facility]: CareDose [facility]: Dose Right [facility]: Teradose 4D [facility]: [employer] RADIATION DOSE: mGy. LIMITATIONS: None. FINDINGS: SKULL BASE: Intact. MAJOR SALIVARY GLANDS: No solid or cystic masses. No inflammatory changes. LYMPHADENOPATHY: No adenopathy. MUCOSAL MASSES OR ASYMMETRY: No mucosal masses or asymmetry. LARYNX/CORDS: No abnormal findings. LUNG APICES: Clear. BONES: Intact. THYROID: Approximately 10 mm low-density nodule right lobe. PARANASAL SINUSES: Clear. OTHER: No other significant finding. IMPRESSION: Small right thyroid nodule. TECHNICAL DOCUMENTATION: JOB ID: [id number] Quality ID # [id number]: Final reports with documentation of one or more dose reduction techniques (e.g., Au tomated exposure control, adjustment of the mA and/or kV according to patient size, use of iterative reconstruction technique) 2010 [employer]- All Rights Reserved Reading location - IP/workstation name: [email or web address]
== END ==
LOC: RAD 12:52
PROVIDERS: ATTEND Internal Medicine
DX: E04.1 Nontoxic single thyroid nodule (principal)
CPT/HCPCS: 70490